=== PATIENT | female | born 1980 | race Caucasian/White ===

== ENCOUNTER 2018-07-25 12:56 | Outpatient (CLI) | payer BC ==
[~2018-07-25] VITALS: Ht 167.6 cm; Wt 83.0 kg
[2018-07-25] MEDS ORDERED: FISH1CAP15 PO (13:12)
[2018-07-25] MEDS ORDERED: ZOLP10TA PO (13:12)
[2018-07-25 13:19] VITALS: BP 121/69
[2018-07-25 14:09] LABS: BASOPHILS % (AUTO) 0 % (0-10); EOSINOPHILS # (AUTO) 0.1 10^3/uL (0.0-0.3); EOSINOPHILS % (AUTO) 1 % (0-10); HEMATOCRIT 43 % (35-52); HEMOGLOBIN 14.5 G/DL (11.5-16.0); LYMPHOCYTES # (AUTO) 2.4 X 10^3 (1.0-4.0); LYMPHOCYTES % (AUTO) 28 % (12-44); MEAN CORPUSCULAR HEMOGLOBIN 30 PG (25-34); MEAN CORPUSCULAR HGB CONC 34 G/DL (32-36); MEAN CORPUSCULAR VOLUME 87 FL (80-99); MONOCYTES # (AUTO) 0.3 X 10^3 (0.0-1.0); MONOCYTES % (AUTO) 4 % (0-12); NEUTROPHILS # (AUTO) 5.8 X 10^3 (1.8-7.8); NEUTROPHILS % (AUTO) 67 % (42-75); PLATELET COUNT 400 10^3/uL (130-400); RED BLOOD COUNT 4.91 10^6/uL (4.35-5.85); RED CELL DISTRIBUTION WIDTH 12.9 % (10.0-14.5); WHITE BLOOD COUNT 8.7 10^3/uL (4.3-11.0)
[2018-07-25 14:15] LABS: BILIRUBIN,URINE NEGATIVE (NEGATIVE); CLARITY,URINE CLEAR; COLOR,URINE YELLOW; GLUCOSE, URINE (UA) NEGATIVE (NEGATIVE); KETONES,URINE NEGATIVE (NEGATIVE); LEUKOCYTE ESTERASE ,URINE NEGATIVE (NEGATIVE); NITRITE,URINE NEGATIVE (NEGATIVE); PH,URINE 6 (5-9); PROTEIN,URINE NEGATIVE (NEGATIVE); UROBILINOGEN,URINE NORMAL (NORMAL)
[2018-07-25 14:29] LABS: BACTERIA,URINE TRACE /HPF
== END 2018-07-25 14:33 | disposition home or self-care (01) ==
LOC: PREOP 12:56
PROVIDERS: ATTEND Obstetrics & Gynecology
DX: Z01.812 Encounter for preprocedural laboratory examination (principal); Z11.2 Encounter for screening for other bacterial diseases; N92.0 Excessive and frequent menstruation with regular cycle; N94.6 Dysmenorrhea, unspecified; N80.0 Endometriosis of uterus; E28.2 Polycystic ovarian syndrome
CPT/HCPCS: 36415; 81000; 85025; 86850; 86900; 86901; 87081

== ENCOUNTER 2018-08-02 07:50 | Day surgery (SDC) | payer BC ==
[~2018-08-02] VITALS: Ht 167.6 cm; Wt 83.0 kg
[~2018-08-02 07:50] MED LIST: FISH1CAP15 PO; ZOLP10TA PO
[2018-08-02] MEDS ORDERED: BUP/EPI 0.5% 1:200,000 (SENSORCAINE) 30 ML VIAL ONE (08:09)
--- OUTSIDE RECORDS SUMMARY | 2018-08-02 08:09 | XMS REPORT | Clinical Summary ---
Author Author Admin, TRISTON Organization [facility] Address Unknown Phone Unavailable Allergies, Adverse Reactions, Alerts Allergy Name Reaction Description Start Date Severity Status Provider SULFA rash, vomiting, dyspnea Critical Active Branden Lewis DO Conditions or Problems Problem Name Problem Code Onset Date Status Entry Date Provider Comment Standard Description Annotate Viral syndrome 079.99 Active Branden Lewis DO Unspecified viral infection Other nonspecific finding on examination of urine 791.9 Active Mendy Laurie LRT Other nonspecific findings on examination of urine Medication List Medication Instructions Start Date Stop Date Generic Name NDC Status Provider Patient Instruction ZOFRAN ODT 4 MG ORAL TABLET DISINTEGRATING 1 po q6hr PRN Nausea ONDANSETRON 80651573812 Active Branden Lewis DO Active MULTIVITAMINS ORAL CAPSULE 1 tab daily MULTIPLE VITAMIN 64933855047 Active Branden Lewis DO Active Vital Signs Date Name Value Unit Range Description blood pressure, diastolic 72 mm[Hg] BP hahn blood pressure, systolic 119 mm[Hg] BP sys height E&M 66.5 [in_us] Bdy height pulse rate E&M 112 /min Heart rate temperature E&M 100.2 [degF] Body temperature weight E&M 182 [lb_av] Weight Measured Diagnostic Results Date Name Value Unit Range Description Lab Report: UADIP W/MICRO, AUTO, STEFANY INFLUENZA A/B - Chemistry protein, total urine random Negative mg/dL Negative RBC, urine, dipstick 1+ Negative Lab Report: UADIP W/MICRO, AUTO, STEFANY INFLUENZA A/B - Toxicology rapid flu test Negative Negative Lab Report: UADIP W/MICRO, AUTO, STEFANY INFLUENZA A/B - Urinalysis urobilinogen, urine, semiquantitative (dipstick) 0.2 E.U./dL Normal leukocyte esterase, urine, by dipstick Trace Negative nitrite, urine, semiquantitative Negative Negative glucose, urine, semiquantitative Negative Negative ketones, urine, by test strip 1+ Negative bilirubin, urine Negative Negative urine color Yellow Colorless;Lightyellow;Straw;Yellow appearance, urine Clear Clear specific gravity, urine 1.020 1.000-1.030 pH, urine, semiquantitative 7.5 5.0-8.5 Encounters Code Encounter Date Provider Facility CPT-36844 Level 3 New Patient 17:00:23 SOA INTEGRATION ARCHITECT Branden Lewis DO [facility] CPT-83141 Level 3 New Patient 16:59:07 SOA INTEGRATION ARCHITECT Branden Lewis DO [facility]
--- OUTSIDE RECORDS SUMMARY | 2018-08-02 08:09 | XMS REPORT | Clinical Summary ---
Author Author Admin, TRISTON Organization [facility] Address Unknown Phone Unavailable Allergies, Adverse Reactions, Alerts Allergy Name Reaction Description Start Date Severity Status Provider SULFA rash, vomiting, dyspnea Critical Active Branden Lewis DO Conditions or Problems Problem Name Problem Code Onset Date Status Entry Date Provider Comment Standard Description Annotate Viral syndrome 079.99 Inactive Branden Lewis DO Unspecified viral infection Other nonspecific finding on examination of urine 791.9 Active Mendy Laurie LRT Other nonspecific findings on examination of urine Viral syndrome ICD-079.99 Inactive Branden Lewis DO Medication List Medication Instructions Start Date Stop Date Generic Name NDC Status Provider Patient Instruction ZOFRAN ODT 4 MG ORAL TABLET DISINTEGRATING 1 po q6hr PRN Nausea ONDANSETRON 36097246465 Active Branden Lweis DO Active MULTIVITAMINS ORAL CAPSULE 1 tab daily MULTIPLE VITAMIN 02845057081 Active Branden Lewis DO Active Vital Signs [...] 5.0-8.5 Encounters Code Encounter Date Provider Facility CPT-76896 Level 3 New Patient 17:00:23 ARMORED MACHINE OPERATOR Branden Lewis DO [facility] CPT-15018 Level 3 New Patient 16:59:07 ARMORED MACHINE OPERATOR Branden Lewis DO [facility]
--- OUTSIDE RECORDS SUMMARY | 2018-08-02 08:09 | XMS REPORT | Clinical Summary ---
Author Author Admin, TRISTON Organization [facility] Address Unknown Phone Unavailable Allergies, Adverse Reactions, [...] DISINTEGRATING 1 po q6hr PRN Nausea ONDANSETRON 00268775469 Active Branden Lewis DO Active MULTIVITAMINS ORAL CAPSULE 1 tab daily MULTIPLE VITAMIN 76639597711 Active Branden Lewis DO Active Vital Signs [...] 5.0-8.5 Encounters Code Encounter Date Provider Facility CPT-83708 Level 3 New Patient 17:00:23 DIRECTOR TECHNICAL Branden Lewis DO [facility] CPT-07660 Level 3 New Patient 16:59:07 DIRECTOR TECHNICAL Branden Lewis DO [facility]
--- OUTSIDE RECORDS SUMMARY | 2018-08-02 08:09 | XMS REPORT | Clinical Summary ---
Author Author Admin, Cathi Organization [facility] Address Unknown Phone Unavailable Allergies, Adverse [...] Instructions Start Date Stop Date Generic Name ND Status Provider Patient Instruction ZOFRAN ODT 4 MG ORAL TABLET DISINTEGRATING 1 po q6hr PRN Nausea ONDANSETRON 97163847518 Active Branden Lewis DO Active MULTIVITAMINS ORAL CAPSULE 1 tab daily MULTIPLE VITAMIN 18146159667 Active Branden Lewis DO Active Vital Signs Date Name Value Unit Range Description blood pressure, diastolic 72 mm[Hg] BP hahn blood pressure, systolic 119 mm[Hg] BP sys height E&M 66.5 [in_us] Bdy height pulse rate E&M 112 /min Heart rate temperature E&M 100.2 [degF] Body temperature weight E&M 182 [lb_av] Weight Measured Encounters Code Encounter Date Provider Facility CPT-42167 Level 3 New Patient 17:00:23 CORPORATE STRATEGY ANALYST Branden Lewis DO [facility] CPT-11567 Level 3 New Patient 16:59:07 CORPORATE STRATEGY ANALYST Branden Lewis DO [facility]
--- OUTSIDE RECORDS SUMMARY | 2018-08-02 08:09 | XMS REPORT | Clinical Summary ---
Author Author Admin, TRISTON Organization [facility] Address Unknown Phone Unavailable Allergies, Adverse Reactions, [...] DISINTEGRATING 1 po q6hr PRN Nausea ONDANSETRON 25327715364 Active Branden Lewis DO Active MULTIVITAMINS ORAL CAPSULE 1 tab daily MULTIPLE VITAMIN 13574394518 Active Branden Lewis DO Active Vital Signs [...] 5.0-8.5 Encounters Code Encounter Date Provider Facility CPT-04119 Level 3 New Patient 17:00:23 GEAR DESIGN ENGINEER Branden Lewis DO [facility] CPT-99790 Level 3 New Patient 16:59:07 GEAR DESIGN ENGINEER Branden Lewis DO [facility]
[2018-08-02 08:10] VITALS: BP 117/70
[2018-08-02] MEDS: LACTATED RINGERS 1,000 ML IV PRN ×3 (08:10→12:03)
--- OUTSIDE RECORDS SUMMARY | 2018-08-02 08:10 | XMS REPORT | Clinical Summary ---
Author Author Admin, [facility] Organization [facility] Address Unknown Phone Unavailable Allergies, Adverse [...] DISINTEGRATING 1 po q6hr PRN Nausea ONDANSETRON 40026595237 Active Branden Lewis DO Active MULTIVITAMINS ORAL CAPSULE 1 tab daily MULTIPLE VITAMIN 93218731685 Active Branden Lewis DO Active Vital Signs Date Name Value Unit Range Description blood pressure, diastolic 72 mm[Hg] BP hahn blood pressure, systolic 119 mm[Hg] BP sys height E&M 66.5 [in_us] Bdy height pulse rate E&M 112 /min Heart rate temperature E&M 100.2 [degF] Body temperature weight E&M 182 [lb_av] Weight Measured Encounters Code Encounter Date Provider Facility CPT-01279 Level 3 New Patient 17:00:23 EARLY HEAD START TEACHER Branden Lewis DO [facility] CPT-86224 Level 3 New Patient 16:59:07 EARLY HEAD START TEACHER Branden Lewis DO [facility]
--- OUTSIDE RECORDS SUMMARY | 2018-08-02 08:10 | XMS REPORT ---
Author Jn Garza [facility] Address [address] [place], [place] [address] Care Team Providers Care Header Operator Name Role Phone Jn Loera PCP Unavailable Allergies and Adverse Reactions Name Reaction Notes SULFA (SULFONAMIDES) Alphagan Plan of Treatment Planned Activity Comments Planned Date Planned Time Plan/Goal Urinalysis dipstick (done in clinic) 05/26/2018 12:00 AM TSH 05/27/2018 12:00 AM TESTOSTERONE FREE & TOTAL 05/27/2018 12:00 AM Medications Active Name Start Date Estimated Completion Date SIG Comments metformin 500 mg oral tablet 05/23/2018 1 tab po tid Zofran 4 mg oral tablet 06/17/2018 1 tab po q 6 hours prn Name Start Date Expiration Date SIG Comments amoxicillin 500 mg oral capsule 10/17/2016 10/24/2016 take 1 capsule (500 mg) by oral route every 12 hours for 7 days Macrobid 100 mg oral capsule 01/23/2018 01/30/2018 take 1 capsule (100 mg) by oral route every 12 hours with food for 7 days phenazopyridine 200 mg oral tablet 01/23/2018 01/28/2018 take 1 tablet (200 mg ) by oral route 3 times per day after meals for 5 days Ambien 10 mg oral tablet 03/08/2018 04/07/2018 take 1 tablet (10 mg) by oral route once daily at bedtime for 30 days cephalexin 500 mg oral capsule 03/08/2018 03/18/2018 take 1 capsule (500 mg) by oral route every 12 hours for 10 days Discontinued Name Start Date Discontinued Date SIG Comments erythromycin 5 mg/gram (0.5 %) ophthalmic (eye) ointment 05/23/2018 05/30/2018 apply 1 cm ribbon into the lower conjunctival sac in the right eye by ophthalmic route 3 times per day Vaniqa 13.9 % topical cream 05/30/2018 06/17/2018 apply a thin layer to the affected area(s) by topical route 2 times per day for 90 days Lysteda 650 mg oral tablet 05/30/2018 06/17/2018 take 2 tablets (1,300 mg) by oral route 3 times per day during menses for 5 days Vivlodex 10 mg oral capsule 05/30/2018 06/13/2018 take 1 capsule (10 mg) by oral route once daily for 60 days Ultram 50 mg oral tablet 06/13/2018 06/17/2018 take 1 tablet (50 mg) by oral route every 4-6 hours as needed for 7 days Flomax 0.4 mg oral capsule 06/17/2018 06/17/2018 take 1 capsule (0.4 mg) by oral route once daily 1/2 hour following the same meal each day for 7 days Problem List Not available. Vital Signs Date Time BP-Sys(mm[Hg] BP-Preethi(mm[Hg]) HR(bpm) RR(rpm) Temp WT HT HC BMI BSA BMI Percentile O2 Sat(%) 06/17/2018 11:37:00 AM 118 mmHg 72 mmHg 83 bpm 18 rpm 99 F 179.5 lbs 66 in 28.9718 kg/m 1.9472 m 96 % 05/30/2018 2:31:00 PM 128 mmHg 76 mmHg 102 bpm 19 rpm 98.1 F 183.125 lbs 66.25 in 29.33 kg/m2 1.97 m2 99 % 05/23/2018 3:34:00 PM 104 mmHg 76 mmHg 68 bpm 18 rpm 181.25 lbs 66 in 29.25 kg/m2 1.96 m2 99 % 03/08/2018 11:36:00 AM 118 mmHg 74 mmHg 84 bpm 18 rpm 98.4 F 177.5 lbs 66 in 28.649 kg/m 1.9363 m 99 % 01/23/2018 1:45:00 PM 122 mmHg 78 mmHg 100 bpm 18 rpm 98.6 F 183 lbs 66 in 29.54 kg/m2 1.97 m2 96 % 10/17/2016 1:40:00 PM 108 mmHg 62 mmHg 66 bpm 16 rpm 99 F 170 lbs 66 in 27.4384 kg/m 1.8949 m 100 % Social History Name Description Comments Tobacco Never smoker Alcohol Children 3 History of Procedures Date Ordered Description Order Status 01/23/2018 12:00 AM URINE CULTURE/COLONY COUNT Reviewed 05/26/2018 12:00 AM ROUTINE VENIPUNCTURE Reviewed 05/26/2018 12:00 AM GLYCOSYLATED HEMOGLOBIN TEST Reviewed 05/26/2018 12:00 AM LIPID PANEL Reviewed 05/26/2018 12:00 AM COMPREHEN METABOLIC PANEL Reviewed 05/26/2018 12:00 AM COMPLETE CBC W/AUTO DIFF WBC Reviewed 05/26/2018 12:00 AM ASSAY THYROID STIM HORMONE Reviewed 05/26/2018 12:00 AM ASSAY OF FREE THYROXINE Reviewed 05/26/2018 8:32 AM URINALYSIS AUTO W/O SCOPE Reviewed 05/27/2018 12:00 AM ASSAY OF GONADOTROPIN (LH) Reviewed 05/27/2018 12:00 AM ASSAY OF PROLACTIN Reviewed 05/27/2018 12:00 AM DEHYDROEPIANDROSTERONE Reviewed 05/27/2018 12:00 AM ASSAY OF SEX HORMONE GLOBUL Reviewed 05/27/2018 12:00 AM LACTATE (LD) (LDH) ENZYME Reviewed 05/27/2018 12:00 AM ASSAY OF ESTROGEN Reviewed 05/27/2018 12:00 AM ASSAY OF ESTRADIOL Reviewed 05/30/2018 12:00 AM US EXAM PELVIC COMPLETE Reviewed 05/30/2018 12:00 AM TRANSVAGINAL US NON-OB Reviewed 06/05/2018 12:00 AM US EXAM PELVIC COMPLETE Reviewed 06/05/2018 12:00 AM TRANSVAGINAL US NON-OB Reviewed 06/17/2018 12:30 PM URINALYSIS AUTO W/O SCOPE Reviewed 06/17/2018 12:00 AM URINE BACTERIA CULTURE Returned 06/17/2018 12:[address] ABD & PELVIS W/O CONTRAST Returned 06/17/2018 12:00 AM Toradol 30 Mg Injection Reviewed 06/17/2018 12:00 AM US EXAM ABDOM COMPLETE Reviewed 06/21/2018 12:00 AM US EXAM ABDOM COMPLETE Returned Results Summary Date and Description Results 05/26/2018 8:00 AM GLUCOSE 107 SODIUM 139 POTASSIUM 4.2 CHLORIDE 105 CO2 24 BUN 11 CREATININE 0.7 SGOT/AST 22 SGPT/ALT 32 ALK PHOS 114 TOTAL PROTEIN 7.3 ALBUMIN 4.7 TOTAL BILI 0.5 CALCIUM 9.4 AGE 37 GFR NonAA 95 GFR AA 115 eGFR 95 eGFR AA* >60 FREE T4 0.76 TRIGLYCERIDES 223 CHOLESTEROL 251 HDL 47 TOT CHOL/HDL 5.3 LDL (CALC) 159 TSH 2.33 HGB A1C 5.4 Est Avg Glucose 108.3 WBC 8.2 RBC 4.75 HGB 14.4 HCT 42.7 MCV 90 MCH 30.3 MCHC 33.7 RDW SD 40 RDW CV 12.3 MPV 9.6 PLT 381 NRBC# 0.00 NRBC% 0.0 %NEUT 56.9 %LYMP 33.9 %MONO 6.0 %EOS 2.2 %BASO 0.9 # NEUT 4.68 #LYMP 2.79 #MONO 0.49 #EOS 0.18 #BASO 0.07 MANUAL DIFF NOT IND 05/26/2018 8:32 AM Clarity Ur clear Urine-Color yellow Glucose Ur-sCnc neg Bilirub Ur Ql neg Ketones Ur Ql Strip neg Sp Gr Ur Qn 1.025 Hgb Ur Ql Strip neg pH Ur-LsCnc 6.0 Prot Ur Ql Strip neg Urobilinogen Ur-mCnc 0.2 Nitrite Ur Ql Strip neg WBC # Ur neg 05/26/2018 5:41 PM LDH 151 LH 11.1 Sex Horm Binding Glob,Serum 36.9 Prolactin 18.2 Estradiol 178.6 Estrogens, Total 316 Dehydroepiandrosterone(DHEA) 448 06/17/2018 12:30 PM Glucose Ur-sCnc neg Bilirub Ur Ql Strip neg Ketones Ur Ql Strip neg Sp Gr Ur Qn 1.010 Hgb Ur Ql Strip moderate pH Ur-LsCnc 7.5 Prot Ur Ql Strip neg Urobilinogen Ur-mCnc 0.2 Nitrite Ur Ql Strip neg WBC Est Ur Ql Strip neg History Of Immunizations Not available. History of Past Illness Name Date of Onset Comments PCOS (polycystic ovarian syndrome) Headache Oct 17 2016 1:43PM URI (upper respiratory infection) Oct 17 2016 1:43PM Influenza Oct 17 2016 1:43PM Dysuria Jan 23 2018 1:48PM Cellulitis of right lower limb Mar 08 2018 11:42AM Cutaneous abscess of right lower limb Mar 08 2018 11:42AM Toxic effect of unspecified spider venom, accidental (unintentional), initial encounter Mar 08 2018 11:42AM Conjunctivitis May 23 2018 3:40PM PCOS (polycystic ovarian syndrome) May 23 2018 3:40PM Wellness examination May 26 2018 8:31AM PCOS (polycystic ovarian syndrome) May 26 2018 8:31AM PCOS (polycystic ovarian syndrome) May 27 2018 5:22PM Abnormal uterine bleeding (AUB) May 30 2018 3:14PM Abnormal Uterine Bleeding May 30 2018 2:35PM Hirsutism May 30 2018 2:35PM Dysmenorrhea May 30 2018 2:35PM Menorrhagia May 30 2018 2:35PM Metrorrhagia May 30 2018 2:35PM Flank pain Jun 17 2018 11:37AM Hematuria Jun 17 2018 11:37AM Nausea Jun 17 2018 3:32PM Diarrhea Jun 17 2018 3:32PM Abdominal pain, right upper quadrant Jun 17 2018 3:32PM Payers Insurance Name Company Name Plan Name Plan Number Policy Number Policy Group Number Start Date BCBS [facility]cbs [facility] [id number] N/A BCBS [employer] [facility] [id number] N/A History of Encounters Visit Date Visit Type Provider 06/17/2018 Office visit Jn Loera DISTRICT RECRUITER 05/30/2018 Office visit Julienne Basurto DISTRICT RECRUITER 05/26/2018 Laboratory Luis Iglesias NP 05/23/2018 Office visit Jn Loera DISTRICT RECRUITER 03/08/2018 Office visit Luis Iglesias NP 01/23/2018 Office visit Camilo Bocanegra DISTRICT RECRUITER 10/17/2016 Office visit Jeffy Lizama NP
--- OUTSIDE RECORDS SUMMARY | 2018-08-02 08:10 | XMS REPORT ---
Author Jn Garza [facility] Address [address] [place], [place] [address] Care Team Providers Care Three Dimensional Art Instructor Name Role Phone Jn Loera PCP Unavailable [...] 1 tab po q 6 hours prn tramadol 50 mg oral tablet 06/24/2018 take 1 tablet (50 mg) by oral route every 6 hours as needed Name Start Date Expiration Date SIG Comments [...] HC BMI BSA BMI Percentile O2 Sat(%) 06/24/2018 9:03:00 AM 116 mmHg 82 mmHg 74 bpm 18 rpm 98.6 F 186.375 lbs 66 in 30.0814 kg/m 1.9841 m 97 % 06/17/2018 11:37:00 AM 118 mmHg 72 mmHg 83 bpm 18 rpm 99 F 179.5 lbs 66 in 28.97 kg/m2 1.95 m2 96 % 05/30/2018 2:31:00 PM 128 mmHg 76 mmHg 102 bpm 19 rpm 98.1 F 183.125 lbs 66.25 in 29.3342 kg/m 1.9705 m 99 % 05/23/2018 3:34:00 PM 104 mmHg [...] 12:00 AM US EXAM ABDOM COMPLETE Returned 06/24/2018 12:00 AM COMPREHEN METABOLIC PANEL Returned 06/24/2018 12:00 AM ANTINUCLEAR ANTIBODIES Returned 06/24/2018 12:00 AM C-REACTIVE PROTEIN Returned 06/24/2018 12:00 AM HEPATOBILIARY SYSTEM IMAGING Returned 06/24/2018 12:00 AM ROUTINE VENIPUNCTURE Reviewed Results Summary Date and Description Results 05/26/2018 [...] right upper quadrant Jun 17 2018 3:32PM Enlarged liver Jun 24 2018 9:07AM Nausea Jun 24 2018 9:07AM Diarrhea Jun 24 2018 9:07AM Abdominal pain, right upper quadrant Jun 24 2018 9:07AM Payers Insurance Name Company Name Plan Name Plan Number Policy Number Policy Group Number Start Date BCBS [facility]cbs [facility] [id number] N/A BCBS [employer] [facility] [id number] N/A History of Encounters Visit Date Visit Type Provider 06/24/2018 Office visit Jn Loera PESTICIDE APPLICATOR 06/17/2018 Office visit Jn Loera PESTICIDE APPLICATOR 05/30/2018 Office visit Julienne Basurto PESTICIDE APPLICATOR 05/26/2018 Laboratory Luis Iglesias RESEARCH NEUROPSYCHOLOGIST 05/23/2018 Office visit Jn Loera PESTICIDE APPLICATOR 03/08/2018 Office visit Luis Iglesias NP 01/23/2018 Office visit Camilo Bocanegra PESTICIDE APPLICATOR 10/17/2016 Office visit Jeffy Lizama NP
--- OUTSIDE RECORDS SUMMARY | 2018-08-02 08:10 | XMS REPORT | Clinical Summary ---
Author Author Admin, Cathi Organization [facility] Address Unknown Phone Unavailable Allergies, Adverse [...] DISINTEGRATING 1 po q6hr PRN Nausea ONDANSETRON 65203516314 Active Branden Lewis DO Active MULTIVITAMINS ORAL CAPSULE 1 tab daily MULTIPLE VITAMIN 70115751730 Active Branden Lewis DO Active Vital Signs Date Name Value Unit Range Description blood pressure, diastolic 72 mm[Hg] BP hahn blood pressure, systolic 119 mm[Hg] BP sys height E&M 66.5 [in_us] Bdy height pulse rate E&M 112 /min Heart rate temperature E&M 100.2 [degF] Body temperature weight E&M 182 [lb_av] Weight Measured Encounters Code Encounter Date Provider Facility CPT-15578 Level 3 New Patient 17:00:23 REFINERY OPERATOR REFORMING UNIT Branden Lewis DO [facility] CPT-81059 Level 3 New Patient 16:59:07 REFINERY OPERATOR REFORMING UNIT Branden Lewis DO [facility]
--- OUTSIDE RECORDS SUMMARY | 2018-08-02 08:11 | XMS REPORT ---
Author Jn Garza [facility] Address [address] [place], [place] [address] Care Team Providers Care Clinical Team Manager Name Role Phone Jn Loera PCP Unavailable Allergies and Adverse Reactions Name Reaction Notes SULFA (SULFONAMIDES) Alphagan Plan of Treatment Planned Activity Comments Planned Date Planned Time Plan/Goal Urinalysis dipstick (done in clinic) 05/26/2018 12:00 AM TSH 05/27/2018 12:00 AM TESTOSTERONE FREE & TOTAL 05/27/2018 12:00 AM Urine culture and sensitivity 06/17/2018 12:[address] ABD AND PELVIS W/O CONTRAST 06/17/2018 12:00 AM Medications Active Name Start Date [...] 05/30/2018 12:00 AM US EXAM PELVIC COMPLETE Returned 05/30/2018 12:00 AM TRANSVAGINAL US NON-OB Returned 06/05/2018 12:00 AM US EXAM PELVIC COMPLETE Reviewed 06/05/2018 12:00 AM TRANSVAGINAL US NON-OB Reviewed 06/17/2018 12:30 PM URINALYSIS AUTO W/O SCOPE Reviewed 06/17/2018 12:00 AM Toradol 30 Mg Injection Reviewed 06/17/2018 12:00 AM US EXAM ABDOM COMPLETE Reviewed Results Summary Date and Description Results [...] Policy Group Number Start Date BCBS [employer] [facility] [place] [id number] N/A BCBS Bcbs [facility] [id number] N/A History of Encounters Visit Date Visit Type Provider 06/17/2018 Office visit Jn Loera SENIOR JAVA ARCHITECT 05/30/2018 Office visit Julienne Basurto SENIOR JAVA ARCHITECT 05/26/2018 Laboratory Luis Iglesias NP 05/23/2018 Office visit Jn Loera SENIOR JAVA ARCHITECT 03/08/2018 Office visit Luis Iglesias NP 01/23/2018 Office visit Camilo Bocanegra SENIOR JAVA ARCHITECT 10/17/2016 Office visit Jeffy Lizama NP
--- OUTSIDE RECORDS SUMMARY | 2018-08-02 08:11 | XMS REPORT ---
Author Jn Garza [facility] Address [address] [place], [place] [address] Care Team Providers Care Drill Instructor Name Role Phone Jn Loera PCP Unavailable Allergies and Adverse Reactions Name Reaction Notes SULFA (SULFONAMIDES) Alphagan Plan of Treatment Planned Activity Comments Planned Date Planned Time Plan/Goal Urinalysis dipstick (done in clinic) 05/26/2018 12:00 AM TSH 05/27/2018 12:00 AM TESTOSTERONE FREE & TOTAL 05/27/2018 12:[address] ABD AND PELVIS W/O [...] URINE BACTERIA CULTURE Returned 06/17/2018 12:00 AM Toradol 30 Mg [...] Group Number Start Date BCBS [facility] [facility] [place] [id number] N/A BCBS Bcbs [facility] [id number] N/A History of Encounters Visit Date Visit Type Provider 06/17/2018 Office visit Jn Loera DUTY OFFICER 05/30/2018 Office visit Julienne Basurto DUTY OFFICER 05/26/2018 Laboratory Luis Iglesias NP 05/23/2018 Office visit Jn Loera DUTY OFFICER 03/08/2018 Office visit Luis Iglesias NP 01/23/2018 Office visit Camilo Bocanegra DUTY OFFICER 10/17/2016 Office visit Jeffy Lizama NP
--- OUTSIDE RECORDS SUMMARY | 2018-08-02 08:11 | XMS REPORT ---
Author Jn Garza [facility] Address [address] [place], [place] [address] Care Team Providers Care Zipper Setter Chainstitch Name Role Phone Jn Loera PCP Unavailable Allergies and Adverse Reactions Name Reaction Notes SULFA (SULFONAMIDES) Alphagan Plan of Treatment Planned Activity Comments Planned Date Planned Time Plan/Goal Urinalysis dipstick (done in clinic) 05/26/2018 12:00 AM TSH 05/27/2018 12:00 AM TESTOSTERONE FREE & TOTAL 05/27/2018 12:[address] ABD AND PELVIS W/O CONTRAST 06/17/2018 12:00 AM US ABDOMINAL COMPLETE 06/21/2018 12:00 AM Medications Active Name Start Date [...] Group Number Start Date BCBS [facility] [facility] [place] [id number] N/A BCBS Bcbs [facility] [id number] N/A History of Encounters Visit Date Visit Type Provider 06/17/2018 Office visit Jn Loera WEATHER FORECASTER 05/30/2018 Office visit Julienne Basurto WEATHER FORECASTER 05/26/2018 Laboratory Luis Iglesias NP 05/23/2018 Office visit Jn Loera WEATHER FORECASTER 03/08/2018 Office visit Luis Iglesias NP 01/23/2018 Office visit Camilo Bocanegra WEATHER FORECASTER 10/17/2016 Office visit Jeffy Lizama NP
--- OUTSIDE RECORDS SUMMARY | 2018-08-02 08:12 | XMS REPORT ---
Author Jn Garza [facility] Address [address] [place], [place] [address] Care Team Providers Care Senior Product Analyst Name Role Phone Jn Loera PCP Unavailable [...] CONTRAST 06/17/2018 12:00 AM US ABDOMINAL COMPLETE 06/17/2018 12:00 AM Medications Active Name Start [...] 12:00 AM Toradol 30 Mg Injection Reviewed Results Summary Date and Description Results [...] Policy Group Number Start Date BCBS Bcbs [facility] [id number] N/A BCBS Bcbs [facility] [id number] N/A History of Encounters Visit Date Visit Type Provider 06/17/2018 Office visit Jn Loera SWIM COACH 05/30/2018 Office visit Julienne Basurto SWIM COACH 05/26/2018 Laboratory Luis Iglesias NP 05/23/2018 Office visit Jn Loera SWIM COACH 03/08/2018 Office visit Luis Iglesias NP 01/23/2018 Office visit Camilo Bocanegra SWIM COACH 10/17/2016 Office visit Jeffy Lizama NP
--- OUTSIDE RECORDS SUMMARY | 2018-08-02 08:12 | XMS REPORT ---
Author Jn Garza [facility] Address [address] [place], [place] [address] Care Team Providers Care Inspector Rough Castings Name Role Phone Jn Loera PCP Unavailable [...] oral tablet 05/23/2018 1 tab po tid Flomax 0.4 mg oral capsule 06/17/2018 06/24/2018 take 1 capsule (0.4 mg) by oral route once daily 1/2 hour following the same meal each day for 7 days Zofran 4 mg oral tablet 06/17/2018 1 [...] 4-6 hours as needed for 7 days Problem List Not available. [...] 2018 11:37AM Hematuria Jun 17 2018 11:37AM Payers Insurance Name Company Name Plan Name Plan Number Policy Number Policy Group Number Start Date BCBS [employer] [facility] [place] [id number] N/A BCBS Bcbs [facility] [id number] N/A History of Encounters Visit Date Visit Type Provider 06/17/2018 Office visit Jn Loera HAND PACKER 05/30/2018 Office visit Julienne Basurto HAND PACKER 05/26/2018 Laboratory Luis Iglesias NP 05/23/2018 Office visit Jn Loera HAND PACKER 03/08/2018 Office visit Luis Iglesias NP 01/23/2018 Office visit Camilo Bocanegra HAND PACKER 10/17/2016 Office visit Jeffy Lizama NP
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
--- OUTSIDE RECORDS SUMMARY | 2018-08-02 08:13 | XMS REPORT ---
Author Jn Garza [facility] Address [address] [place], [place] [address] Care Team Providers Care Bi Developer Name Role Phone Jn Loera PCP Unavailable [...] Policy Group Number Start Date BCBS Bcbs [facility] [id number] N/A BCBS [facility] [id number] N/A History of Encounters Visit Date Visit Type Provider 06/17/2018 Office visit Jn Loera ADMINISTRATIVE SALES ASSISTANT 05/30/2018 Office visit Julienne Basurto ADMINISTRATIVE SALES ASSISTANT 05/26/2018 Laboratory Luis Iglesias NP 05/23/2018 Office visit Jn Loera ADMINISTRATIVE SALES ASSISTANT 03/08/2018 Office visit Luis Iglesias NP 01/23/2018 Office visit Camilo Bocanegra ADMINISTRATIVE SALES ASSISTANT 10/17/2016 Office visit Jeffy Lizama NP
--- OUTSIDE RECORDS SUMMARY | 2018-08-02 08:13 | XMS REPORT ---
Author Author Julienne Basurto [facility] Address [address] [place], [place] [address] Care Team Providers Care Professor Of Communication Name Role Phone Julienne Basurto PCP Allergies [...] per day during menses for 5 days Ultram 50 mg oral tablet 06/13/2018 06/20/2018 take 1 tablet (50 mg) by oral route every 4-6 hours as needed for 7 days Name Start Date Expiration Date SIG [...] by ophthalmic route 3 times per day Vivlodex 10 mg oral capsule 05/30/2018 06/13/2018 take 1 capsule (10 mg) by oral route once daily for 60 days Problem List Not available. Vital Signs [...] Policy Group Number Start Date BCBS Bcbs [facility] [id number] N/A BCBS [employer]cbs [facility] [id number] N/A History of Encounters Visit Date Visit Type Provider 05/30/2018 Office visit Julienne Basurto BLASTING WORKER 05/26/2018 Laboratory Luis Iglesias NP 05/23/2018 Office visit Jn Loera BLASTING WORKER 03/08/2018 Office visit Luis Iglesias NP 01/23/2018 Office visit Camilo Bocanegra BLASTING WORKER 10/17/2016 Office visit Jeffy Lizama NP
[2018-08-02] MEDS ORDERED: ONDANSETRON 4 MG/2 ML (SDV) Z0FRAN ONE ×2 (08:14→08:22)
[2018-08-02] MEDS ORDERED: SCOPOLAMINE 1.5 MG (TRANSDERM-SCOP) PATCH ONE (08:14)
--- OUTSIDE RECORDS SUMMARY | 2018-08-02 08:14 | XMS REPORT ---
Author Author Luis Iglesias [facility] Address [address] [place], [place] [address] Care Team Providers Care Journeyman Carpenter Name Role Phone Luis Iglesias PCP Allergies and Adverse Reactions Name Reaction Notes SULFA (SULFONAMIDES) Alphagan Plan of Treatment Planned Activity Comments Planned Date Planned Time Plan/Goal Urinalysis dipstick (done in clinic) 05/26/2018 12:00 AM LH 05/27/2018 12:00 AM TSH 05/27/2018 12:00 AM PROLACTIN 05/27/2018 12:00 AM DHEA 05/27/2018 12:00 AM SEX HORMONE BINDING GLOBULIN 05/27/2018 12:00 AM LDH 05/27/2018 12:00 AM TESTOSTERONE FREE & TOTAL 05/27/2018 12:00 AM ESTROGEN SERUM TOTAL 05/27/2018 12:00 AM ESTRADIOL. 05/27/2018 12:00 AM Medications Active Name Start Date Estimated Completion Date SIG Comments erythromycin 5 mg/gram (0.5 %) ophthalmic (eye) ointment 05/23/2018 apply 1 cm ribbon into the lower conjunctival sac in the right eye by ophthalmic route 3 times per day metformin 500 mg oral tablet 05/23/2018 1 tab po tid Name Start Date Expiration Date SIG Comments [...] route every 12 hours for 10 days Problem List Not available. Vital Signs Date Time BP-Sys(mm[Hg] BP-Preethi(mm[Hg]) HR(bpm) RR(rpm) Temp WT HT HC BMI BSA BMI Percentile O2 Sat(%) 05/23/2018 3:34:00 PM 104 mmHg 76 mmHg 68 bpm 18 rpm 181.25 lbs 66 in 29.2542 kg/m 1.9566 m 99 % 03/08/2018 11:36:00 AM 118 mmHg 74 mmHg 84 bpm 18 rpm 98.4 F 177.5 lbs 66 in 28.65 kg/m2 1.94 m2 99 % 01/23/2018 1:45:00 PM 122 mmHg 78 mmHg 100 bpm 18 rpm 98.6 F 183 lbs 66 in 29.5367 kg/m 1.9661 m 96 % 10/17/2016 1:40:00 PM 108 mmHg 62 mmHg 66 bpm 16 rpm 99 F 170 lbs 66 in 27.4384 kg/m 1.89 m2 100 % Social History Name Description Comments Tobacco Never smoker Alcohol History of Procedures Date Ordered Description Order [...] 8:32 AM URINALYSIS AUTO W/O SCOPE Reviewed Results Summary Date and Description Results [...] Ql Strip neg WBC # Ur neg History Of Immunizations Not available. History [...] (polycystic ovarian syndrome) May 27 2018 5:22PM Payers Insurance Name Company Name Plan Name Plan Number Policy Number Policy Group Number Start Date BCBS [facility] [place] [id number] N/A BCBS [facility] [id number] N/A History of Encounters Visit Date Visit Type Provider 05/26/2018 Laboratory Luis Iglesias NP 05/23/2018 Office visit Jn Loera TRANSIT OPERATOR 03/08/2018 Office visit Luis Iglesias NP 01/23/2018 Office visit Camilo Bocanegra TRANSIT OPERATOR 10/17/2016 Office visit Jeffy Lizama NP
--- OUTSIDE RECORDS SUMMARY | 2018-08-02 08:14 | XMS REPORT ---
Author Author Julienne Basurto [facility] Address [address] [place], [place] [address] Care Team Providers Care Computer Operations Analyst Name Role Phone Julienne Basurto PCP Allergies and Adverse Reactions Name Reaction Notes SULFA (SULFONAMIDES) Alphagan Plan of Treatment Planned Activity Comments Planned Date Planned Time Plan/Goal Urinalysis dipstick (done in clinic) 05/26/2018 12:00 AM TSH 05/27/2018 12:00 AM DHEA 05/27/2018 12:00 AM TESTOSTERONE FREE & TOTAL 05/27/2018 12:00 AM ESTROGEN SERUM TOTAL 05/27/2018 12:00 AM ESTRADIOL. 05/27/2018 12:00 AM Transabdominal / Transvaginal US [...] per day during menses for 5 days Name Start Date Expiration Date SIG [...] day after meals for 5 days Ambien mg oral tablet 03/08/2018 04/07/2018 take 1 [...] 05/27/2018 12:00 AM ASSAY OF GONADOTROPIN (LH) Returned 05/27/2018 12:00 AM ASSAY OF PROLACTIN Returned 05/27/2018 12:00 AM ASSAY OF SEX HORMONE GLOBUL Returned 05/27/2018 12:00 AM LACTATE (LD) (LDH) ENZYME Reviewed Results Summary Date and Description Results [...] Ur neg 05/26/2018 5:41 PM LDH 151 History Of Immunizations Not available. History of [...] 2018 2:35PM Hirsutism May 30 2018 2:35PM Payers Insurance Name Company Name Plan Name Plan Number Policy Number Policy Group Number Start Date BCBS [facility] [place] [id number] N/A BCBS [facility] [place] [id number] N/A History of Encounters Visit Date Visit Type Provider 05/30/2018 Office visit Julienne Basurto MANAGER PAYMENT 05/26/2018 Laboratory Luis Iglesias NP 05/23/2018 Office visit Jn Loera MANAGER PAYMENT 03/08/2018 Office visit Luis Iglesias NP 01/23/2018 Office visit Camilo Bocanegra MANAGER PAYMENT 10/17/2016 Office visit Jeffy Lizama NP
--- OUTSIDE RECORDS SUMMARY | 2018-08-02 08:14 | XMS REPORT ---
Author Author Luis Iglesias [facility] Address [address] [place], [place] [address] Care Team Providers Care Public Information Officer Name Role Phone Luis Iglesias PCP Allergies and Adverse Reactions Name Reaction Notes SULFA (SULFONAMIDES) Alphagan Plan of Treatment Planned Activity Comments Planned Date Planned Time Plan/Goal HEMOGLOBIN A1C 05/26/2018 12:00 AM LIPID PANEL 05/26/2018 12:00 AM COMPREHENSIVE METABOLIC PANEL 05/26/2018 12:00 AM CBC W/ AUTO DIFF (RFLX MAN DIFF IF IND). 05/26/2018 12:00 AM Urinalysis dipstick (done in clinic) 05/26/2018 12:00 AM TSH 05/26/2018 12:00 AM T4 FREE 05/26/2018 12:00 AM Medications Active Name Start Date [...] 05/26/2018 12:00 AM ROUTINE VENIPUNCTURE Reviewed 05/26/2018 8:32 AM URINALYSIS AUTO W/O SCOPE Reviewed Results Summary Date and Description Results 05/26/2018 8:32 AM Clarity Ur clear Urine-Color [...] (polycystic ovarian syndrome) May 26 2018 8:31AM Payers Insurance Name Company Name Plan Name Plan Number Policy Number Policy Group Number Start Date BCBS [facility]bs [facility] [id number] N/A BCBS [facility] [id number] N/A History of Encounters Visit Date Visit Type Provider 05/26/2018 Laboratory Luis Iglesias NP 05/23/2018 Office visit Jn Loera MUCKER COFFERDAM 03/08/2018 Office visit Luis Iglesias NP 01/23/2018 Office visit Camilo Bocanegra MUCKER COFFERDAM 10/17/2016 Office visit Jeffy Lizama NP
[2018-08-02] MEDS ORDERED: ceFAZolin INJECTION 1,000 MG in NS (IVPB) 50 ML IV ONE (08:15)
[2018-08-02] MEDS ORDERED: metroNIDAZOLE 500MG/100ML IVPB 100 ML IV ONE (08:15)
[2018-08-02] MEDS ORDERED: FAMOTIDINE 20MG/2ML IV (PEPCID) ONE (08:15)
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
--- OUTSIDE RECORDS SUMMARY | 2018-08-02 08:15 | XMS REPORT ---
Author Jeffy Dumont [facility] Address [address] [place], [place] [address] Care Team Providers Care Ice Cream Freezer Assistant Name Role Phone Jeffy Lizama PCP Unavailable Allergies and Adverse Reactions Name Reaction Notes SULFA (SULFONAMIDES) Plan of Treatment Not available. Medications Active Name Start Date Estimated Completion Date SIG Comments amoxicillin 500 mg oral capsule 10/17/2016 10/24/2016 take 1 capsule (500 mg) by oral route every 12 hours for 7 days Problem List Not available. Vital Signs Date Time BP-Sys(mm[Hg] BP-Preethi(mm[Hg]) HR(bpm) RR(rpm) Temp WT HT HC BMI BSA BMI Percentile O2 Sat(%) 10/17/2016 1:40:00 PM 108 mmHg 62 mmHg 66 bpm 16 rpm 99 F 170 lbs 66 in 27.44 kg/m2 1.89 m2 100 % Social History Not available. History of Procedures Not available. Results Summary Not available. History Of Immunizations Not available. History of Past Illness Name Date of Onset Comments Headache Oct 17 2016 1:43PM URI (upper respiratory infection) Oct 17 2016 1:43PM Influenza Oct 17 2016 1:43PM Payers Insurance Name Company Name Plan Name Plan Number Policy Number Policy Group Number Start Date [facility] [id number] N/A History of Encounters Visit Date Visit Type Provider 10/17/2016 Office visit Jeffy Lizama OIL HEAT TECHNICIAN
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
--- OUTSIDE RECORDS SUMMARY | 2018-08-02 08:15 | XMS REPORT ---
Author Author Luis Iglesias [facility] Address [address] [place], [place] [address] Care Team Providers Care Inspector And Sorter Name Role Phone Luis Iglesias PCP Allergies [...] Start Date BCBS [facility]bs [facility] [id number] N/A BCBS [facility] [id number] N/A History of Encounters Visit Date Visit Type Provider 05/26/2018 Laboratory Luis Iglesias NP 05/23/2018 Office visit Jn Loera GANG PLANK WORKMAN 03/08/2018 Office visit Luis Iglesias NP 01/23/2018 Office visit Camilo Bocanegra GANG PLANK WORKMAN 10/17/2016 Office visit Jeffy Lizama NP
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
--- OUTSIDE RECORDS SUMMARY | 2018-08-02 08:15 | XMS REPORT ---
Author Jn Garza [facility] Address [address] [place], [place] [address] Care Team Providers Care Pharmaceutical Operator Name Role Phone Jn Loera PCP Unavailable Allergies and Adverse Reactions Name Reaction Notes SULFA (SULFONAMIDES) Alphagan Plan of Treatment Not available. Medications Active [...] 01/23/2018 12:00 AM URINE CULTURE/COLONY COUNT Reviewed Results Summary Not available. History Of Immunizations [...] (polycystic ovarian syndrome) May 23 2018 3:40PM Payers Insurance Name Company Name Plan Name Plan Number Policy Number Policy Group Number Start Date BCBS Bcbs [facility] [id number] N/A BCBS [employer] [facility] [id number] N/A History of Encounters Visit Date Visit Type Provider 05/23/2018 Office visit Jn Loera MERCERIZER MACHINE OPERATOR 03/08/2018 Office visit Luis Iglesias NP 01/23/2018 Office visit Camilo Bocanegra MERCERIZER MACHINE OPERATOR 10/17/2016 Office visit Jeffy Lizama NP
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
--- OUTSIDE RECORDS SUMMARY | 2018-08-02 08:15 | XMS REPORT ---
Author Author Camilo Bocanegra [facility] Address [address] [place], [place] [address] Care Team Providers Care Yard Worker Name Role Phone Camilo Bocanegra PCP Allergies and Adverse Reactions Name Reaction Notes SULFA (SULFONAMIDES) Plan of Treatment Planned Activity Comments Planned Date Planned Time Plan/Goal CULTURE URINE. 01/23/2018 12:00 AM Medications Active Name Start Date Estimated Completion Date SIG Comments Macrobid 100 mg oral capsule 01/23/2018 01/30/2018 take 1 capsule (100 mg) by oral route every 12 hours with food for 7 days phenazopyridine 200 mg oral tablet 01/23/2018 01/28/2018 take 1 tablet (200 mg ) by oral route 3 times per day after meals for 5 days Name Start Date Expiration Date SIG Comments amoxicillin 500 mg oral capsule 10/17/2016 10/24/2016 take 1 capsule (500 mg) by oral route every 12 hours for 7 days Problem List Not available. Vital Signs Date Time BP-Sys(mm[Hg] BP-Preethi(mm[Hg]) HR(bpm) RR(rpm) Temp WT HT HC BMI BSA BMI Percentile O2 Sat(%) 01/23/2018 1:45:00 PM 122 mmHg 78 mmHg 100 bpm 18 rpm 98.6 F 183 lbs 66 in 29.5367 kg/m 1.9661 m 96 % 10/17/2016 1:40:00 PM 108 mmHg 62 mmHg 66 bpm 16 rpm 99 F 170 lbs 66 in 27.44 kg/m2 1.89 m2 100 % Social History Name Description Comments Tobacco Never smoker Alcohol History of Procedures Not available. Results Summary Not available. History Of Immunizations Not available. History of Past Illness Name Date of Onset Comments Headache Oct 17 2016 1:43PM URI (upper respiratory infection) Oct 17 2016 1:43PM Influenza Oct 17 2016 1:43PM Dysuria Jan 23 2018 1:48PM Payers Insurance Name Company Name Plan Name Plan Number Policy Number Policy Group Number [facility] Date [id number]A History of Encounters Visit Date Visit Type Provider 01/23/2018 Office visit Camilo Bocanegra APRN 10/17/2016 Office visit Jeffy Lizama NP
--- OUTSIDE RECORDS SUMMARY | 2018-08-02 08:16 | XMS REPORT | Continuity of Care Document ---
Author Author [facility] Address Unknown Phone Unavailable Allergies Active Description Code Type Severity Reaction Onset Reported/Identified Relationship to Patient Clinical Status Yes sulfa drug 16 Drug N/A N/A Yes Sulfa (Sulfonamide Antibiotics) [id number] Drug Allergy Mild RASH, GI UPSET 07/25/2018 Medications There is no data. Problems Date Dx Coded Attending Type Code Diagnosis Diagnosed By 10/26/2017 B97.89 Viral syndrome 10/26/2017 R82.99 Other nonspecific finding on examination of urine 07/27/2018 LUDA ZHENG DO Ot E28.2 POLYCYSTIC OVARIAN SYNDROME 07/27/2018 LUDA ZHENG DO, Ot N80.0 ENDOMETRIOSIS OF UTERUS 07/27/2018 LUDA ZHENG DO Ot N92.0 EXCESSIVE AND FREQUENT MENSTRUATION WITH 07/27/2018 LUDA ZHENG DO Ot N94.6 DYSMENORRHEA, UNSPECIFIED 07/27/2018 LUDA ZHENG DO Ot Z01.812 ENCOUNTER FOR PREPROCEDURAL LABORATORY E 07/27/2018 LUDA ZHENG DO Ot Z11.2 ENCOUNTER FOR SCREENING FOR OTHER BACTER Procedures There is no data. Results Test Result Range Estradiol - 05/26/18 17:41 Estradiol 178.6 pg/mL Estrogens, Total - 05/26/18 17:41 Estrogens, Total 316 pg/mL Sex Horm Binding Glob, Serum - 05/26/18 17:41 Sex Horm Binding Glob, Serum 36.9 nmol/L 24.6-122.0 Prolactin - 05/26/18 17:41 Prolactin 18.2 ng/mL 4.8-23.3 Luteinizing Hormone(LH), S - 05/26/18 17:41 LH 11.1 mIU/mL DHEA, Serum - 05/26/18 17:41 Dehydroepiandrosterone (DHEA) 448 ng/dL 31-701 Hepatitis Panel (4) - 06/24/18 10:05 HBsAg Screen Negative Negative Hep A Ab, IgM Negative Negative Hep B Core Ab, IgM Negative Negative Hep C Virus Ab <0.1 s/co ratio 0.0-0.9 Complete urinalysis with reflex to culture - 07/25/18 13:40 Urine color determination YELLOW NRG Urine clarity determination CLEAR NRG Urine pH measurement by test strip 6 5-9 Specific gravity of urine by test strip 1.010 1.016- 1.022 Urine protein assay by test strip, semi-quantitative NEGATIVE NEGATIVE Urine glucose detection by automated test strip NEGATIVE NEGATIVE Erythrocytes detection in urine sediment by light microscopy NEGATIVE NEGATIVE Urine ketones detection by automated test strip NEGATIVE NEGATIVE Urine nitrite detection by test strip NEGATIVE NEGATIVE Urine total bilirubin detection by test strip NEGATIVE NEGATIVE Urine urobilinogen measurement by automated test strip (mass/volume) NORMAL NORMAL Urine leukocyte esterase detection by dipstick NEGATIVE NEGATIVE Automated urine sediment erythrocyte count by microscopy (number/high power field) NONE NRG Automated urine sediment leukocyte count by microscopy (number/high power field ) NONE NRG Bacteria detection in urine sediment by light microscopy TRACE NRG Squamous epithelial cells detection in urine sediment by light microscopy 5-10 NRG Crystals detection in urine sediment by light microscopy NONE NRG Casts detection in urine sediment by light microscopy NONE NRG Mucus detection in urine sediment by light microscopy NEGATIVE NRG Complete urinalysis with reflex to culture NO NRG Methicillin resistant Staphylococcus aureus (MRSA) screening culture - 13:45 Methicillin resistant Staphylococcus aureus (MRSA) screening culture NEG NRG Complete blood count (CBC) with automated white blood cell (WBC) differential - 07/25/18 13:50 Blood leukocytes automated count (number/volume) 8.7 10*3/uL 4.3-11.0 Blood erythrocytes automated count (number/volume) 4.91 10*6/uL 4.35-5.85 Venous blood hemoglobin measurement (mass/volume) 14.5 g/dL 11.5-16.0 Blood hematocrit (volume fraction) 43 % 35-52 Automated erythrocyte mean corpuscular volume 87 [foz_us] 80-99 Automated erythrocyte mean corpuscular hemoglobin (mass per erythrocyte) 30 pg 25-34 Automated erythrocyte mean corpuscular hemoglobin concentration measurement ( mass/volume) 34 g/dL 32-36 Automated erythrocyte distribution width ratio 12.9 % 10.0-14.5 Automated blood platelet count (count/volume) 400 10*3/uL 130-400 Automated blood platelet mean volume measurement 10.0 [foz_us] 7.4-10.4 Automated blood neutrophils/100 leukocytes 67 % 42-75 Automated blood lymphocytes/100 leukocytes 28 % 12-44 Blood monocytes/100 leukocytes 4 % 0-12 Automated blood eosinophils/100 leukocytes 1 % 0-10 Automated blood basophils/100 leukocytes 0 % 0-10 Blood neutrophils automated count (number/volume) 5.8 10*3 1.8-7.8 Blood lymphocytes automated count (number/volume) 2.4 10*3 1.0-4.0 Blood monocytes automated count (number/volume) 0.3 10*3 0.0-1.0 Automated eosinophil count 0.1 10*3/uL 0.0-0.3 Automated blood basophil count (count/volume) 0.0 10*3/uL 0.0-0.1 Blood type T Indirect antibody screen panel - 07/25/18 13:50 ABO+Rh group BP NRG Blood group antibody screen NEGATIVE NRG Encounters ACCT No. Visit Date/Time Discharge Status Pt. Type Provider Facility Loc./Unit Complaint [id number] 05/30/2018 09:27:00 ACT Unknown [id number] 06/17/2018 12:44:30 06/17/2018 23:59:59 DIS Outpatient JENNIFER RAMIREZ [facility] flank pain, hematuria [id number] 09/06/2017 04:11:00 09/06/2017 07:20:00 DIS Emergency BETH RAMOS [facility] ED visit [id number] 06/24/2018 10:00:35 06/24/2018 23:59:59 CLS Outpatient Jennifer Ramirez [id number] 06/20/2018 16:26:44 06/20/2018 23:59:59 CLS Outpatient Jennifer Ramirez [id number] 05/30/2018 14:59:05 05/30/2018 23:59:59 CLS Outpatient Julienne Basurto [id number] 05/26/2018 09:03:17 05/26/2018 23:59:59 CLS Outpatient Luis Iglesias [id number] 05/23/2018 16:01:46 05/23/2018 23:59:59 CLS Outpatient Jennifer Ramirez [id number] 03/08/2018 12:24:45 03/08/2018 23:59:59 CLS Outpatient Luis Iglesias [id number] 01/23/2018 14:44:09 01/23/2018 23:59:59 CLS Outpatient Camilo Bocanegra [id number] 10/17/2016 13:57:02 10/17/2016 23:59:59 CLS Outpatient Jeffy Lizama [id number] 05/30/2018 14:05:00 Document Registration [id number] 06/01/2018 06:06:00 Document Registration [id number] 11/15/2017 15:20:00 11/15/2017 23:59:59 CLS Outpatient LAGOSRICKEY CONTRERAS [id number] 05/30/2018 14:05:00 Document Registration [id number] 05/30/2018 14:05:00 Document Registration [id number] 07/25/2018 12:56:00 07/25/2018 14:33:00 DIS Outpatient LUDA ZHENG DO [facility] PREOP MENORRHAGIA [id number] 08/02/2018 07:50:00 ACT Outpatient LUDA ZHENG DO [facility] SDC MENORRHAGIA [id number] 05/30/2018 14:05:00 Document Registration [id number] 06/02/2018 12:08:00 Document Registration [id number] 06/25/2018 14:05:00 Document Registration
[2018-08-02] MEDS ORDERED: fentaNYL INJECTION 100 MCG/2 ML AMP ONE ×3 (08:17→12:24)
[2018-08-02] MEDS ORDERED: MIDAZOLAM 2 MG/2 ML (VERSED) VIAL ONE (08:17)
[2018-08-02] MEDS ORDERED: proPOfol 200 MG/20 ML (DIPRIVAN) VIAL IV ONE (08:22)
[2018-08-02] MEDS ORDERED: ROCURONIUM 10 MG/ML 5 ML SYRINGE IV ONE (08:22)
[2018-08-02] MEDS ORDERED: LIDOCAINE PF 2% 5 ML (XYLOCAINE) VIAL ONE (08:22)
[2018-08-02] MEDS ORDERED: SEVOFLURANE (ULTANE) 15 ML INHAL SOLN ONE ×11 (08:22→12:07)
[2018-08-02] MEDS ORDERED: DEXAMETHASONE 10 MG/ML (DECADRON) 1 ML VIAL ONE (08:22)
[2018-08-02] MEDS: CATHETER FLUSH 10 ML SYR IV PRN (08:25)
--- NOTE | 2018-08-02 08:49 | Progress Note-Pre Operative ---
Pre-Operative Progress Note H&P Reviewed The H&P was reviewed, patient examined and no changes noted. Date Seen by Provider: Aug 02, 2018 Time Seen by Provider: 09:50 Date H&P Reviewed: Aug 02, 2018 Time H&P Reviewed: 07:30 Pre-Operative Diagnosis: menorrhagia, dysmenorrhea, adenomyosis, pcos LUDA ZHENG DO Aug 02, 2018 08:49
[2018-08-02] MEDS ORDERED: ONDANSETRON 4 MG/2 ML (SDV) Z0FRAN IV ONE (09:00)
[2018-08-02] MEDS ORDERED: FAMOTIDINE 20MG/2ML IV (PEPCID) IV ONE (09:00)
[2018-08-02] MEDS ORDERED: SCOPOLAMINE 1.5 MG (TRANSDERM-SCOP) PATCH TOP ONE (09:00)
[2018-08-02] MEDS ORDERED: NEOSTIGMINE 1 MG/ML 5 ML SYRINGE ONE (10:52)
[2018-08-02] MEDS ORDERED: GLYCOPYRROLATE 0.2 MG/ML (ROBINUL) 2 ML VIAL ONE (10:52)
[2018-08-02] MEDS: KETOROLAC 30 MG/ML VIAL IV PRN ×2 (12:25→18:54)
[2018-08-02] MEDS ORDERED: KETOROLAC 30 MG/ML VIAL ONE (12:26)
[2018-08-02] MEDS ORDERED: ZOLPIDEM 5 MG (AMBIEN) TAB PO PRN (12:45)
[2018-08-02] MEDS ORDERED: ANTACID SUSP 30 ML UDC (MYLANTA) PO PRN (12:45)
[2018-08-02] MEDS ORDERED: DOCUSATE SODIUM 100 MG (COLACE) CAP PO PRN (12:45)
[2018-08-02] MEDS ORDERED: CHLORASEPTIC LOZENGE MM PRN (12:45)
--- NOTE | 2018-08-02 12:51 | Operative Report ---
Operative Report Date of Procedure/Surgery Aug 02, 2018 Surgeon (s) LUDA ZHENG DO Sieve Repairer (s): NA Post-Operative Diagnosis Stage 4 endometriosis Extensive adhesion Endometrioma right ovary/complex ovarian cyst Adenomyosis endometriosis Procedure Performed RaTH, bilateral salpingectomy Right oophorectomy extensive lysis of adhesions (> 60 minutes) Description of Procedure Anesthesia Type: General Estimated blood loss (mL): 250 Specimen(s) collected/removed uterus, bilateral tubes and right ovary Description of the Procedure After informed consent was obtained, patient was taken into the operating room where general anesthetic was found to be adequate. She was prepped and draped in the usual sterile fashion in the dorsal lithotomy position. A Donaldson catheter was placed. A speculum was placed in the vagina. The cervix was visualized and was prolapsed to the introitus. The anterior lip was grasped with a sharp toothed tenaculum. The uterus was sounded and depth was approximately 8 centimeters. I placed the Jessica device. And then set the Jessica to 8 cm and a 3.5 cm collar was advanced over the cervix. I inserted the Jessica without difficulty, inflating the balloon and securing it around the fornix of the cervix. The collar was then secured with sutures at 12 o'clock. Attention was then turned to the patient's abdomen. A supraumbilical incision was made about 10 mm. A Veress needle was inserted and I had difficulty confirming intraabdominal placement, but was eventually able to confirm with a drop in pressure and the saline drop test. I then insufflated the abdomen to a maximum of 15 mmHg with warmed CO2 gas. I then placed an 8 mm trocar and then the Da Miguel camera and intraperitoneal placement was confirmed. I then determined the procedure could be continued robotically. there were omental adhesions obscuring the view of the uterus that had to be take down before the hysterectomy could be completed. The first robotic port was placed about 15 cm lateral to the right and left of the umbilical placement and slightly inferior. These are both 8 mm trocars. These were placed under direct visualization of the laparoscope. 0.25% Marcaine was injected prior to placement of all trocars. I now placed an assist port in the right up quadrant triangulated between the midline and the right lower Trocal. This was a 10-12 mm trocar. When all placements were confirmed, the patient was placed in steep Trendelenburg allowing adequate visualization and the robot was brought in for docking. The docking was accomplished without difficulty. A survey of the pelvis confirmed the above mentioned findings. There were adhesions of the omentum that were taken down prior to starting the hysterectomy. I now had to take down the bowel adhesions with blunt and sharp dissection. All of the adhesiolysis took at least 60 m inutes. The left tube and ovary was dissected off the posterior uterus and the adhesions were take down from the posterior culdesac. I also took down the adhesions form the right tube and ovary. These were all hemostatic except the right tube and ovary. Now, I was able to visualize the round ligaments bilaterally and grasped them and cauterized with bipolar cautery and then cut with my feliciano. At this point , I then did bilateral salpingectomy. I cut along the mesosalpinx with the monopolar feliciano and then dissected up to the cornu bilaterally. I then moved to the uteroovarian ligaments. I sealed the vessel and transected bilaterally using the bipolar cautery and then cut with the monopolar feliciano. I then moved my dissection to the posterior leaves of the broad ligament. I dissected the posterior leaves of the broad ligament off the uterine arteries skeletonizing them bilaterally. I then took a second clamp with the bipolar cautery and with the feliciano, transected the vessels away from the lateral aspect to the cervical stroma. I dissected the anterior peritoneum off the lower uterine segment. I continually pushed the bladder back and I took excessively great care and I was eventually able to dissect the vesicouterine peritoneum off the lower uterine segment. There was an area of infarcted epiploica that was removed with cautery and sent for pathology. I then dissected in a V fashion towards the midline between the uterosacral ligaments. This allowed me to skeletonize the uterine vessels bilaterally. The balloon on the JESSICA was insufflated. This allowed me to see the JESSICA circumferentially. I then performed a colpotomy anteriorly and then amputate with cervix away from the vaginal fornix. I then continued the colpotomy circumferentially. Once this was performed, the environmental assistant removed the uterus through the vagina. A sponge was left in the vagina to maintain pneumoperitoneum. I then began closure of the vaginal cuff. The uterus was left in the vagina to maintain pneumoperitoneum. I closed the apices of the vaginal cuff with 2-0 Vicryl V lock sutures with a colposuspension through the uterosacral ligaments. This suspended the apices of the vaginal cuff. I extended this to the midline from both sides and overlapped the V lock sutures in the midline. Excellent closure is noted and hemostasis is achieved. At this point the cyst on the right ovary was still bleeding. And appeared to be an endometrioma. I decided that it would not be prudent to excise the cyst as it was an endometrioma and there was extensive bleeding so I made the decision to remove the ovary due to the destruction from the endometrioma and the bleeding. At this point I clamped the infundibulopelvic ligament with the bipolar cautery and cauterized and then cut. There was good hemostasis. I could visualize the ureter the entire time and it was well away from the dissection. I now extended the right upper quadrant incision and inserted the EndoCatch and removed the entire ovary. I now removed the gas and the instruments after copiously irrigating and placing FloSeal All the needles were removed from the patient's abdomen. The deep incisions were closed with 0-vicryl in figure of eight fashion and the skin incisions were closed with 4-0 Monocryl in subcuticular fashion. Skin glue and bandages were placed. Following the case, instrument counts were correct. The patient was repositioned in the supine position and awakened from general anesthesia without difficulty. She was taken to recovery in stable condition. Due to risk of bleeding from the extensive adhesiolysis, she will be observed overnight. Findings of the Procedure There were extensive adhesions. The omentum and bowel were adherent to the posterior culdesac, obliterating the culdesac. The right tube and ovary and the left tube and ovary were adherent to the posterior uterus. There was an endometrioma of the right ovary Allergies and Home Medications Allergies Coded Allergies: Sulfa (Sulfonamide Antibiotics) (Verified Allergy, Mild, RASH, GI UPSET, 07/25/18) Home Medications Acetaminophen 500 Mg Tablet, 1,000 MG PO Q8H PRN for PAIN-MILD OR TEMP > 101 Prescribed by: LUDA ZHENG on 08/12/18 1707 Amoxicillin/Potassium Clav 1 Each Tablet, 1 EACH PO BID Prescribed by: LUDA ZHENG on 08/13/18 1055 Docusate Sodium 100 Mg Capsule, 100 MG PO BID PRN for CONSTIPATION-1ST LINE Prescribed by: LUDA ZHENG on 08/03/18918 Fish Oil/Dha/Epa 1 Each Capsule, 1 EACH PO DAILY, (Reported) Hydromorphone HCl 2 Mg Tablet, 2 MG PO Q4H PRN for PAIN-SEVERE Prescribed by: LUDA ZHENG on 08/12/181706 Ibuprofen 600 Mg Tablet, 600 MG PO Q6H PRN for PAIN-MILD Prescribed by: LUDA ZHENG on 08/03/18918 Metronidazole 500 Mg Tablet, 500 MG PO TID Prescribed by: LUDA ZHENG on 08/13/18 1055 Phenazopyridine HCl 100 Mg Tablet, 200 MG PO TIDPC Prescribed by: LUDA ZHENG on 08/12/181706 Promethazine HCl 25 Mg Tablet, 25 MG PO Q6H PRN for NAUSEA/VOMITING Prescribed by: LUDA ZHENG on 08/04/18 0828 Simethicone 80 Mg Tab.chew, 40 MG PO TID PRN for INDIGESTION Prescribed by: LUDA ZHENG on 08/03/18918 Tolterodine Tartrate 4 Mg Cap, 4 MG PO HS Prescribed by: LUDA ZHENG on 08/12/181706 Zolpidem Tartrate 10 Mg Tablet, 10 MG PO DAILY, (Reported) Patient Home Medication List Home Medication List Reviewed: LUDA Stephen DO Aug 02, 2018 12:51
[2018-08-02] MEDS ORDERED: ONDANSETRON 4 MG/2 ML (SDV) Z0FRAN IVP PRN (13:00)
[2018-08-02] MEDS ORDERED: MEPERIDINE (DEMEROL) INJ 50 MG/ML IVP ONE (13:00)
[2018-08-02] MEDS ORDERED: PROMETHAZINE INJ 25 MG/ML (PHENERGAN) AMP IVP ONE (13:00)
[2018-08-02] MEDS ORDERED: morphine INJ 10 MG/ML 1ML (SYR OR VIAL) IVP ONE (13:00)
[2018-08-02] MEDS ORDERED: HYDROmorphone 2 MG/ML VIAL (DILAUDID) IV ONE (13:00)
[2018-08-02] MEDS ORDERED: morphine INJ 10 MG/ML 1ML (SYR OR VIAL) ONE (13:01)
[2018-08-02] MEDS ORDERED: HYDROmorphone 2 MG/ML VIAL (DILAUDID) ONE (13:12)
--- NOTE | 2018-08-02 13:30 | Anesthesia-General Post-Op ---
General Patient Condition Mental Status/LOC: Same as Preop Cardiovascular: Satisfactory Nausea/Vomiting: Absent Respiratory: Satisfactory Pain: Controlled Complications: Absent Post Op Complications Complications None Follow Up Care/Instructions Patient Instructions None needed. Anesthesia/Patient Condition Patient Condition Patient is doing well, no complaints, stable vital signs, no apparent adverse anesthesia problems. No complications reported per nursing. VELVET WHITMAN CRNA Aug 02, 2018 13:30
[2018-08-02] MEDS ORDERED: MEPERIDINE (DEMEROL) INJ 50 MG/ML ONE (13:37)
[2018-08-02 14:00] VITALS: BP 99/56
[2018-08-02] MEDS: HYDROmorphone 2 MG/ML VIAL (DILAUDID) IV PRN ×2 (14:30→22:12)
[2018-08-02] MEDS: LACTATED RINGERS 1,000 ML IV SCH (16:09)
[2018-08-02] MEDS ORDERED: FLU QUADRIvalent (5+ YOA) 2018-2019 (AFLURIA) 0.5 ML IM ONE ×2 (16:30→17:00)
[2018-08-02] MEDS: ONDANSETRON 4 MG/2 ML (SDV) Z0FRAN IV PRN ×2 (16:43→22:05)
[2018-08-02 16:44] VITALS: BP 97/56
[2018-08-02] MEDS ORDERED: fentaNYL INJECTION 100 MCG/2 ML AMP IVP ONE ×2 (17:45→18:15)
[2018-08-02 20:30] VITALS: BP 90/58
[2018-08-02] MEDS: HYDROcodone/APAP 7.5 MG/325 MG (LORTAB, LORCET PLUS) TABLET PO PRN (22:01)
[2018-08-03 00:05] VITALS: BP 85/54
[2018-08-03] MEDS: KETOROLAC 30 MG/ML VIAL IV PRN (00:05)
[2018-08-03] MEDS: LACTATED RINGERS 1,000 ML IV SCH ×4 (00:05→21:21)
[2018-08-03 03:55] VITALS: BP 95/61
[2018-08-03] MEDS: HYDROmorphone 2 MG/ML VIAL (DILAUDID) IV PRN ×4 (03:55→17:25)
[2018-08-03] MEDS ORDERED: IBUPROFEN 600 MG (MOTRIN) TAB PO PRN (05:15)
[2018-08-03 08:15] VITALS: BP 105/58
[2018-08-03] MEDS: ONDANSETRON 4 MG/2 ML (SDV) Z0FRAN IV PRN (08:23)
[2018-08-03] MEDS ORDERED: IBUP-844 PO (09:19)
[2018-08-03] MEDS ORDERED: DOCU100C37 PO (09:19)
[2018-08-03] MEDS ORDERED: SIME80TA16 PO (09:19)
[2018-08-03] MEDS ORDERED: HYDR-34 PO (09:19)
--- NOTE | 2018-08-03 09:22 | Discharge Inst-Women's Service ---
Discharge Inst-Women's Serv Depart Medication/Instructions New, Converted or Re-Newed RX: RX on Chart Instructions no lifting over 25 lbs keep stool soft (use stool softener and increased fluids and fiber) use simethicone/gas-x as needed increase mobility do not drive for 7 days nothing in the vagina for 12 weeks showers only remove the bandages in 3 days, may do in the shower; if adherent, do not pull, moisten and remove Final Diagnosis stage 4 endometriosis menorrhagia dysmenorrhea right endometrioma extensive adhesions adenomyosis procedure Robotic assisted hysterectomy with bilateral salpingectomy, right oophorectomy extensive lysis of adhesions Consults/Follow Up Additional Follow Up: Yes (1 week with Meme Ballard for incision check, 12 weeks for pelvic exam with Dr. Sanchez) Activity Activity: Activity as Tolerated Driving Instructions: No Driving for 1 Week NO SMOKING: NO SMOKING Nothing Inside Vagina: No Douching, No Numa, No Tampons Diet Discharge Diet: No Restrictions Symptoms to Report to : Swelling Increased, Bleeding Excessive, Pain Increased, Constipation(Persistant), Fever Over 101 Degrees F, Urination Difficulty, Vaginal Bleeding Increase, Cramps in Feet or Legs, Vaginal Discharge Foul For Any Problems or Questions: Contact Your Physician Skin/Wound Care Infection Signs and Symptoms: Increased Redness, Foul Odor of Wound, Increased Drainage, Skin Itchy or Has a Rash, Increased Swelling, Temperature Above 101 F Operative Area Clean and Dry: You May Remove Bandage (in 3 days) Stitches/Melvin/Dermabond: Dermabond Bathing Instructions: LUDA Tavarez DO Aug 03, 2018 09:22
[2018-08-03] MEDS ORDERED: PROMETHAZINE INJ 25 MG/ML (PHENERGAN) AMP IVP PRN (10:00)
[2018-08-03] MEDS: CATHETER FLUSH 10 ML SYR IV PRN (10:41)
[2018-08-03 12:35] VITALS: BP 111/66
--- NOTE | 2018-08-03 12:58 | Physician Progress Note ---
Progress Note Assessment/Plan Date Seen by Provider: Aug 03, 2018 Time Seen by Provider: 08:30 Events since last exam Pain not well controlled. Could not tolerate oral pain medications due to n nausea and emesis. Feels a little better this morning but has not eaten for fear of emesis. No further emesis since last night but feels nauseous with oral meds so is taking IV meds. Donaldson out at 0600 but has not yet voided. IV fluids continued. Complains of right sided abdominal pain/rib pain and shoulder and chest pain. ( consistent with the post operative gas pain). No flatus yet. No BM. Incisions are covered and intact Assessment/Plan Assessment: POD #1 s/p RaTH, bilateral salpingectomy with right oophorectomy and extensive lysis of adhesions Postoperative pain and nausea Will encourage ambulation today (has not yet been up). Encourage antiemetics and po pain medications with pain to dc home this afternoon 1800 Still has not eaten. Fluids stopped bc she voided, but nausea has returned and unable to tolerate the oral pain medication. Pain is mainly across the chest and the shoulders in addition to the right side all consistent with laparoscopy and gas pain. Will change back to IV Toradol and IV pain meds and antiemetics. Encourage IS, ambulation Hold discharge at this time for possible discharge tomorrow. CMP and CBC are pending. She is afebrile though she states that she has had times of chills and sweats, hands are very cold. She is concerned about this. This does seem to be associated with pain. She does have bowel sounds though distension is slightly increased this evening. Vitals Last set of Vitals Signs Vital Signs Date Time Temp Pulse Resp B/P (MAP) Pulse Ox O2 Delivery O2 Flow Rate FiO2 08/03/18 03:55 98.9 80 18 95/61 (72) 94 Simple Mask I&O I&O Intake and Output 08/03/18 00:00 Intake Total 2160 ml Output Total 500 ml Balance 1660 ml IV Total 2160 ml Output Urine Total 500 ml LUDA ZHENG DO Aug 03, 2018 12:57
[2018-08-03] MEDS: SIMETHICONE 80 MG (MYLICON) CHEW PO PRN ×2 (14:39→21:05)
[2018-08-03 16:30] VITALS: BP 115/56
[2018-08-03] MEDS: HYDROcodone/APAP 7.5 MG/325 MG (LORTAB, LORCET PLUS) TABLET PO PRN (16:37)
[2018-08-03] MEDS ORDERED: fentaNYL INJECTION 100 MCG/2 ML AMP IVP PRN (18:00)
[2018-08-03] MEDS: KETOROLAC 30 MG/ML VIAL IVP SCH (18:24)
[2018-08-03 18:36] LABS: BASOPHILS % (AUTO) 0 % (0-10); EOSINOPHILS % (AUTO) 0 % (0-10); HEMATOCRIT 34 % (35-52); HEMOGLOBIN 11.5 G/DL (11.5-16.0); LYMPHOCYTES # (AUTO) 1.9 X 10^3 (1.0-4.0); LYMPHOCYTES % (AUTO) 17 % (12-44); MEAN CORPUSCULAR HEMOGLOBIN 30 PG (25-34); MEAN CORPUSCULAR HGB CONC 34 G/DL (32-36); MEAN CORPUSCULAR VOLUME 88 FL (80-99); MEAN PLATELET VOLUME 9.5 FL (7.4-10.4); MONOCYTES # (AUTO) 0.9 X 10^3 (0.0-1.0); MONOCYTES % (AUTO) 8 % (0-12); NEUTROPHILS # (AUTO) 8.2 X 10^3 (1.8-7.8); NEUTROPHILS % (AUTO) 75 % (42-75); PLATELET COUNT 296 10^3/uL (130-400); RED BLOOD COUNT 3.84 10^6/uL (4.35-5.85); RED CELL DISTRIBUTION WIDTH 13.1 % (10.0-14.5)
[2018-08-03 18:55] LABS: ALANINE AMINOTRANSFERASE 15 U/L (0-55); ALBUMIN 3.9 GM/DL (3.2-4.5); ALKALINE PHOSPHATASE 67 U/L (40-136); BILIRUBIN,TOTAL 0.6 MG/DL (0.1-1.0); BUN/CREATININE RATIO 10; CALCIUM 8.6 MG/DL (8.5-10.1); CARBON DIOXIDE 24 MMOL/L (21-32); CHLORIDE 107 MMOL/L (98-107); CREATININE SERUM 0.73 MG/DL (0.60-1.30); GFR ESTIMATED > 60; GLUCOSE 95 MG/DL (70-105); POTASSIUM 3.7 MMOL/L (3.6-5.0); SODIUM 140 MMOL/L (135-145); TOTAL PROTEIN 6.2 GM/DL (6.4-8.2)
[2018-08-03 20:00] VITALS: BP 113/57
[2018-08-03] MEDS: oxyCODONE/APAP 5/325MG (PERCOCET 5) TABLET PO PRN (22:02)
[2018-08-04] VITALS: BP 101/58
[2018-08-04] MEDS: KETOROLAC 30 MG/ML VIAL IVP SCH ×2 (00:40→07:28)
[2018-08-04] MEDS: LACTATED RINGERS 1,000 ML IV SCH (00:47)
[2018-08-04 04:00] VITALS: BP 101/56
[2018-08-04] MEDS: oxyCODONE/APAP 5/325MG (PERCOCET 5) TABLET PO PRN ×2 (04:12→09:29)
[2018-08-04] MEDS: CATHETER FLUSH 10 ML SYR IV PRN (07:28)
[2018-08-04] MEDS ORDERED: PROM25TA14 PO (08:28)
[2018-08-04] MEDS ORDERED: OXYC1TAB87 PO (08:28)
--- NOTE | 2018-08-04 08:43 | Physician Progress Note ---
Progress Note Assessment/Plan Date Seen by Provider: Aug 04, 2018 Time Seen by Provider: 08:30 Events since last exam DC held due to nausea and lack of pain control. She has been encouraged to walk and do IS (she was not doing this prior bc "it hurt") . Ice packs and heating pad has helped. She is better this morning and has walked more regularly. Will plan dc home later today Labs were wnl. Exam - abdomen is soft, decreased distension and increased bowel sounds Assessment/Plan Assessment: POD #2 s/p RaTH, bilateral salpingectomy with right oophorectomy and extensive lysis of adhesions 2.Postoperative pain and nausea Vitals Last set of Vitals Signs Vital Signs Date Time Temp Pulse Resp B/P (MAP) Pulse Ox O2 Delivery O2 Flow Rate FiO2 08/04/18 04:00 97.3 84 18 101/56 (71) 93 Room Air 08/03/18 20:05 2.00 I&O I&O Intake and Output 08/04/18 00:00 Intake Total 5090 ml Output Total 4150 ml Balance 940 ml Intake Oral 3090 ml IV Total 2000 ml Output Urine Total 4150 ml # Emeses 50 Labs Laboratory Tests 08/03/18 18:31: White Blood Count 11.0, Red Blood Count 3.84L, Hemoglobin 11.5, Hematocrit 34L, Mean Corpuscular Volume 88, Mean Corpuscular Hemoglobin 30, Mean Corpuscular Hemoglobin Concent 34, Red Cell Distribution Width 13.1, Platelet Count 296, Mean Platelet Volume 9.5, Neutrophils (%) (Auto) 75, Lymphocytes (%) (Auto) 17, Monocytes (%) (Auto) 8, Eosinophils (%) (Auto) 0, Basophils (%) (Auto) 0, Neutrophils # (Auto) 8.2H, Lymphocytes # (Auto) 1.9, Monocytes # (Auto) 0.9, Eosinophils # (Auto) 0.0, Basophils # (Auto) 0.0, Sodium Level 140, Potassium Level 3.7, Chloride Level 107, Carbon Dioxide Level 24, Anion Gap 9, Blood Urea Nitrogen 7, Creatinine 0.73, Estimat Glomerular Filtration Rate > 60, BUN/ Creatinine Ratio 10, Glucose Level 95, Calcium Level 8.6, Corrected Calcium 8.7 , Total Bilirubin 0.6, Aspartate Amino Transf (AST/SGOT) 15, Alanine Aminotransferase (ALT/SGPT) 15, Alkaline Phosphatase 67, Total Protein 6.2L, Albumin 3.9 LUDA ZHENG DO Aug 04, 2018 08:43
[2018-08-04] MEDS ORDERED: RX-OXYCODONE/APAP 5-325 MG #4 TAB PK PO PRN (08:45)
[2018-08-04] MEDS ORDERED: RX-ONDANSETRON 4 MG ODT (ZOFRAN) PPK #4 PO PRN (08:45)
[2018-08-12] MEDS ORDERED: HYDR2TAB6 PO (17:07)
[2018-08-12] MEDS ORDERED: TOLTA4 PO (17:07)
[2018-08-12] MEDS ORDERED: PHEN-826 PO (17:07)
[2018-08-12] MEDS ORDERED: ACET-77 PO (17:07)
[2018-08-13] MEDS ORDERED: METR500T PO (10:55)
[2018-08-13] MEDS ORDERED: AMOX-358 PO (10:55)
== END 2018-08-04 10:15 | disposition home or self-care (01) ==
LOC: SDC 07:50 → WS 14:00 → SDC 08-04 10:15
PROVIDERS: ATTEND Obstetrics & Gynecology
DX: N80.0 Endometriosis of uterus (principal); N80.1 Endometriosis of ovary; N83.11 Corpus luteum cyst of right ovary; N94.89 Other specified conditions associated with female genital organs and menstrual cycle; N83.8 Other noninflammatory disorders of ovary, fallopian tube and broad ligament; N94.5 Secondary dysmenorrhea; N92.0 Excessive and frequent menstruation with regular cycle; N73.6 Female pelvic peritoneal adhesions (postinfective); I34.1 Nonrheumatic mitral (valve) prolapse; G89.18 Other acute postprocedural pain; K91.89 Other postprocedural complications and disorders of digestive system; R11.0 Nausea
CPT/HCPCS: 36415; 80053; 84703; 85025; 86850; 86900; 86901; 88307; 94664

== ENCOUNTER 2018-08-11 16:10 | Observation (INO) | payer BC ==
[~2018-08-11] VITALS: Ht 167.6 cm; Wt 83.0 kg
[~2018-08-11 16:10] MED LIST changes: -ACET-77 PO; -AMOX-358 PO; -HYDR2TAB6 PO; -METR500T PO; -PHEN-826 PO; -TOLTA4 PO
[2018-08-11 16:41] VITALS: BP 125/72
[2018-08-11] MEDS ORDERED: PIPERACILLIN/TAZO 4.5 GM/NS 100 ML IV NR ×2 (17:15)
[2018-08-11] MEDS ORDERED: CATHETER FLUSH 10 ML SYR IV PRN (17:15)
[2018-08-11] MEDS ORDERED: RECEIVED CONTRAST (Hold Metformin) IV SCH (17:15)
[2018-08-11] MEDS ORDERED: NS 250 ML (IVPB) BAG IV ONE (17:15)
[2018-08-11] MEDS ORDERED: IOHEXOL 350 MG/ML 100 ML (OMNIPAQUE 350) VIAL IV ONE (17:15)
[2018-08-11] MEDS: HYDROmorphone 2 MG/ML VIAL (DILAUDID) IV PRN ×2 (17:37→21:48)
[2018-08-11] MEDS: ACETAMINOPHEN 500 MG TAB (TYLENOL) PO PRN (17:37)
[2018-08-11] MEDS: NS IV 1000 ML 1,000 ML IV SCH (17:38)
--- NOTE | 2018-08-11 18:18 | Diagnostic Imaging Report ---
PROCEDURE: CT abdomen and pelvis with and without contrast. TECHNIQUE: Precontrast acquisitions were acquired through the abdomen and pelvis. Multiple contiguous axial images were obtained through the abdomen and pelvis after the administration of intravenous contrast. INDICATION: Mid/lower abdominal pain status post recent hysterectomy. COMPARISON: None. FINDINGS: Included portions of the lung bases are clear. CT ABDOMEN: Normal appendix cannot be definitively identified, but there is no indirect or secondary evidence of acute appendicitis. Small bowel loops are nondistended. Liver is diffusely hypodense. No focal hepatic mass-type lesions are seen. Otherwise, the liver, kidneys, adrenal glands, spleen, and pancreas have a normal CT appearance. There is no loculated fluid collection, free fluid, nor free air within the abdomen. There is a single slightly prominent appearing, yet subcentimeter retroperitoneal lymph node anterior to the left psoas muscle just above the aortic bifurcation that measures 8 mm in shortest axis dimension (image 43, series 3). Otherwise, no abnormal mesenteric or retroperitoneal adenopathy is seen. Evaluation of the anterior subcutaneous soft tissues demonstrates area of stranding of the subcutaneous fat in the right upper abdominal quadrant. There is a small amount of gas at the umbilicus as well. Findings may relate to recent hysterectomy. No focal loculated fluid collections are identified within the subcutaneous soft tissues. CT PELVIS: There is, however, a focal loculated fluid collection within the lower pelvis just superior to the vaginal cuff interposed between the urinary bladder and rectum. It measures 2.2 x 6.9 cm (image 76, series 3). There is a moderate amount of stranding of the surrounding fat. Note is made of hyperdense material within the vaginal cuff. Please note, however, that this was present on the noncontrast exam and therefore cannot be assumed to represent cystic vaginal fistula. There may be trace amount of free fluid within the pelvis as well. There is no free air. A few scattered prominent bilateral iliac chain lymph nodes are noted. Bony structures show no acute abnormalities. IMPRESSION: 1. Focal fluid collection in the pelvis as described above. Given history of recent surgery, this does raise concern for potential abscess. Other postsurgical fluid collection such as seroma, hematoma, or lymphocele is also considered. 2. A few borderline prominent retroperitoneal and bilateral iliac chain lymph nodes; possibly reactive. 3. Hepatic steatosis. Dictated by: Dictated on workstation # [id number]
[2018-08-11] MEDS: KETOROLAC 30 MG/ML VIAL IVP SCH (18:30)
[2018-08-11] MEDS ORDERED: PROMETHAZINE INJ 25 MG/ML (PHENERGAN) AMP ONE (19:55)
[2018-08-11] MEDS: PROMETHAZINE INJ 25 MG/ML (PHENERGAN) AMP IVP PRN (20:00)
[2018-08-11 20:32] VITALS: BP 112/66
[2018-08-11] MEDS: metroNIDAZOLE 500MG/100ML IVPB 100 ML IV SCH (21:48)
[2018-08-11] MEDS: PIPERACILLIN SODIUM/TAZOBACTAM 4.5 GM in NS (IVPB) 100 ML IV SCH (23:34)
[2018-08-12] MEDS: KETOROLAC 30 MG/ML VIAL IVP SCH ×4 (01:00→20:15)
[2018-08-12 01:22] VITALS: BP 99/54
[2018-08-12] MEDS: HYDROmorphone 2 MG/ML VIAL (DILAUDID) IV PRN ×3 (02:07→12:03)
--- OUTSIDE RECORDS SUMMARY | 2018-08-12 03:27 | XMS REPORT | Continuity of Care Document ---
Author Author [facility] Organization [facility] Address Unknown Phone Unavailable Allergies Active Description Code Type Severity Reaction Onset Reported/Identified Relationship to Patient Clinical Status Yes sulfa drug 16 Drug N/A N/A Yes Sulfa (Sulfonamide Antibiotics) [id number] Drug Allergy Mild RASH, GI UPSET 07/25/2018 [...] NRG Blood group antibody screen NEGATIVE NRG Urine beta human chorionic gonadotropin (hCG) measurement - 08/02/18 07:57 Urine beta human chorionic gonadotropin (hCG) measurement NEGATIVE NEGATIVE Blood type T Indirect antibody screen panel - 08/02/18 08:10 ABO+Rh group BP NRG Transfusion band number [id number] NRG Blood group antibody screen NEGATIVE NRG Complete blood count (CBC) with automated white blood cell (WBC) differential - 08/03/18 18:31 Blood leukocytes automated count (number/volume) 11.0 10*3/uL 4.3-11.0 Blood erythrocytes automated count (number/volume) 3.84 10*6/uL 4.35-5.85 Venous blood hemoglobin measurement (mass/volume) 11.5 g/dL 11.5-16.0 Blood hematocrit (volume fraction) 34 % 35-52 Automated erythrocyte mean corpuscular volume 88 [foz_us] 80-99 Automated erythrocyte mean corpuscular hemoglobin (mass per erythrocyte) 30 pg 25-34 Automated erythrocyte mean corpuscular hemoglobin concentration measurement ( mass/volume) 34 g/dL 32-36 Automated erythrocyte distribution width ratio 13.1 % 10.0-14.5 Automated blood platelet count (count/volume) 296 10*3/uL 130-400 Automated blood platelet mean volume measurement 9.5 [foz_us] 7.4-10.4 Automated blood neutrophils/100 leukocytes 75 % 42-75 Automated blood lymphocytes/100 leukocytes 17 % 12-44 Blood monocytes/100 leukocytes 8 % 0-12 Automated blood eosinophils/100 leukocytes 0 % 0-10 Automated blood basophils/100 leukocytes 0 % 0-10 Blood neutrophils automated count (number/volume) 8.2 10*3 1.8-7.8 Blood lymphocytes automated count (number/volume) 1.9 10*3 1.0-4.0 Blood monocytes automated count (number/volume) 0.9 10*3 0.0-1.0 Automated eosinophil count 0.0 10*3/uL 0.0-0.3 Automated blood basophil count (count/volume) 0.0 10*3/uL 0.0-0.1 Comprehensive metabolic panel - 08/03/18 18:31 Serum or plasma sodium measurement (moles/volume) 140 mmol/L 135-145 Serum or plasma potassium measurement (moles/volume) 3.7 mmol/L 3.6-5.0 Serum or plasma chloride measurement (moles/volume) 107 mmol/L 98-107 Carbon dioxide 24 mmol/L 21-32 Serum or plasma anion gap determination (moles/volume) 9 mmol/L 5-14 Serum or plasma urea nitrogen measurement (mass/volume) 7 mg/dL 7-18 Serum or plasma creatinine measurement (mass/volume) 0.73 mg/dL 0.60-1.30 Serum or plasma urea nitrogen/creatinine mass ratio 10 NRG Serum or plasma creatinine measurement with calculation of estimated glomerular filtration rate > NRG Serum or plasma glucose measurement (mass/volume) 95 mg/dL 70-105 Serum or plasma calcium measurement (mass/volume) 8.6 mg/dL 8.5-10.1 Serum or plasma total bilirubin measurement (mass/volume) 0.6 mg/dL 0.1-1.0 Serum or plasma alkaline phosphatase measurement (enzymatic activity/volume) 67 U/L 40-136 Serum or plasma aspartate aminotransferase measurement (enzymatic activity/ volume) 15 U/L 5-34 Serum or plasma alanine aminotransferase measurement (enzymatic activity/volume ) 15 U/L 0-55 Serum or plasma protein measurement (mass/volume) 6.2 g/dL 6.4-8.2 Serum or plasma albumin measurement (mass/volume) 3.9 g/dL 3.2-4.5 CALCIUM CORRECTED 8.7 mg/dL 8.5-10.1 Encounters ACCT No. Visit Date/Time Discharge Status Pt. Type Provider Facility Loc./Unit Complaint [id number] 05/30/2018 09:27:00 ACT Unknown [id number] 06/17/2018 12:44:30 06/17/2018 23:59:59 DIS Outpatient JENNIFER RAMIREZ [facility] RAD flank pain, hematuria [id number] 09/06/2017 04:11:00 09/06/2017 07:20:00 DIS Emergency BETH RAMOS [facility] ED ED visit [id number] 06/24/2018 10:00:35 06/24/2018 23:59:59 CLS Outpatient Jennifer Ramirez [id number] 06/20/2018 16:26:44 06/20/2018 23:59:59 CLS Outpatient Jennifer Ramirez [id number] 05/30/2018 14:59:05 05/30/2018 23:59:59 CLS Outpatient Julienne Basurto [id number] 05/26/2018 09:03:17 05/26/2018 23:59:59 CLS Outpatient Luis Iglesias [id number] 05/23/2018 16:01:46 05/23/2018 23:59:59 CLS Outpatient Jennifer Ramirez [id number] 03/08/2018 12:24:45 03/08/2018 23:59:59 CLS Outpatient Luis Iglesias [id number] 01/23/2018 14:44:09 01/23/2018 23:59:59 CLS Outpatient Camilo Bocanegra [id number] 10/17/2016 13:57:02 10/17/2016 23:59:59 CLS Outpatient Jeffy Lizama [id number] 05/30/2018 14:05:00 Document Registration [id number] 06/01/2018 06:06:00 Document Registration [id number] 11/15/2017 15:20:00 11/15/2017 23:59:59 CLS Outpatient RICKEY LAGOS [id number] 05/30/2018 14:05:00 Document Registration [id number] 05/30/2018 14:05:00 Document Registration [id number] 08/02/2018 07:50:00 08/04/2018 10:15:00 DIS Outpatient LUDA ZHENG DO [facility] [place] [id number] 07/25/2018 12:56:00 07/25/2018 14:33:00 DIS Outpatient LUDA ZHENG DO [facility] [place] [id number] 05/30/2018 14:05:00 Document Registration [id number] 06/02/2018 12:08:00 Document Registration [id number] 06/25/2018 14:05:00 Document Registration
[2018-08-12] MEDS: PROMETHAZINE INJ 25 MG/ML (PHENERGAN) AMP IVP PRN (05:21)
[2018-08-12] MEDS: ACETAMINOPHEN 500 MG TAB (TYLENOL) PO PRN (05:21)
[2018-08-12 05:36] VITALS: BP 100/65
[2018-08-12] MEDS: metroNIDAZOLE 500MG/100ML IVPB 100 ML IV SCH ×3 (05:36→21:47)
[2018-08-12] MEDS: TOLTERODINE LA 2 MG (DETROL LA) CAP PO ONE ×2 (06:42→06:49)
[2018-08-12 07:34] LABS: BASOPHILS % (AUTO) 0 % (0-10); EOSINOPHILS # (AUTO) 0.3 10^3/uL (0.0-0.3); EOSINOPHILS % (AUTO) 2 % (0-10); HEMATOCRIT 32 % (35-52); HEMOGLOBIN 10.9 G/DL (11.5-16.0); LYMPHOCYTES # (AUTO) 1.7 X 10^3 (1.0-4.0); LYMPHOCYTES % (AUTO) 14 % (12-44); MEAN CORPUSCULAR HEMOGLOBIN 29 PG (25-34); MEAN CORPUSCULAR HGB CONC 34 G/DL (32-36); MEAN CORPUSCULAR VOLUME 87 FL (80-99); MEAN PLATELET VOLUME 9.2 FL (7.4-10.4); MONOCYTES # (AUTO) 0.8 X 10^3 (0.0-1.0); MONOCYTES % (AUTO) 7 % (0-12); NEUTROPHILS # (AUTO) 9.4 X 10^3 (1.8-7.8); NEUTROPHILS % (AUTO) 77 % (42-75); PLATELET COUNT 432 10^3/uL (130-400); RED BLOOD COUNT 3.71 10^6/uL (4.35-5.85); RED CELL DISTRIBUTION WIDTH 12.9 % (10.0-14.5); WHITE BLOOD COUNT 12.3 10^3/uL (4.3-11.0)
[2018-08-12] MEDS: PIPERACILLIN SODIUM/TAZOBACTAM 4.5 GM in NS (IVPB) 100 ML IV SCH ×2 (07:46→16:23)
[2018-08-12 07:50] VITALS: BP 118/56
[2018-08-12 07:57] LABS: ALANINE AMINOTRANSFERASE 30 U/L (0-55); ALBUMIN 3.5 GM/DL (3.2-4.5); ALKALINE PHOSPHATASE 177 U/L (40-136); BILIRUBIN,TOTAL 0.6 MG/DL (0.1-1.0); BUN/CREATININE RATIO 9; CALCIUM 8.9 MG/DL (8.5-10.1); CARBON DIOXIDE 22 MMOL/L (21-32); CHLORIDE 106 MMOL/L (98-107); CREATININE SERUM 0.76 MG/DL (0.60-1.30); GFR ESTIMATED > 60; GLUCOSE 106 MG/DL (70-105); POTASSIUM 3.9 MMOL/L (3.6-5.0); SODIUM 140 MMOL/L (135-145); TOTAL PROTEIN 6.6 GM/DL (6.4-8.2)
[2018-08-12] MEDS: NS IV 1000 ML 1,000 ML IV SCH ×2 (08:41→16:30)
--- NOTE | 2018-08-12 09:46 | Physician Progress Note ---
Progress Note Assessment/Plan Date Seen by Provider: Aug 12, 2018 Time Seen by Provider: 09:30 Events since last exam IV started, IV antibiotics started. CT with and without show fluid collection suggestive of hematoma (most likely), seroma or abscess. She has not take much po due to pain and RN reported that she had no emesis. She does have clear liquid diet ordered. Has not had BM since admission. Did have UO but it was low output so straight cath was done and she had no post void residual. Pain seems out of proportion to the exam. She has dilaudid and toradol for pain. Started detrol for bladder spasm and pyridium for bladder pain. WBC from office labs 13 and hemoglobin 12. CMP wnl except AFP. UA negative with SG of 1.005. Rare sq and otherwise completely negative. Culture sent due to complaints however. This was a straight cath with 500 ml out. 99 temp on admission. Afebrile throughout the night. However, RN reported T of 100 this am. SCDs are on. IS is ordered and encouraged. Will plan ambulation today and up in chair. Reviewed CT with the radiologist. There is no ureteral injury no bladder extravasation, no bowel injury. There is a fluid collection as described above and this corresponds to her exam. Will continue IV antibiotics and IV pain medications and Toradol. Continue Detrol and pyridium Assessment/Plan see above Vitals Last set of Vitals Signs Vital Signs Date Time Temp Pulse Resp B/P (MAP) Pulse Ox O2 Delivery O2 Flow Rate FiO2 08/12/18 05:36 98.5 77 20 100/65 (77) 98 Room Air I&O I&O Intake and Output 08/12/18 00:00 Intake Total 215 ml Balance 215 ml Intake Oral 15 ml IV Total 200 ml Labs Laboratory Tests 08/12/18 07:27: White Blood Count 12.3H, Red Blood Count 3.71L, Hemoglobin 10.9L, Hematocrit 32L , Mean Corpuscular Volume 87, Mean Corpuscular Hemoglobin 29, Mean Corpuscular Hemoglobin Concent 34, Red Cell Distribution Width 12.9, Platelet Count 432H, Mean Platelet Volume 9.2, Neutrophils (%) (Auto) 77H, Lymphocytes (%) (Auto) 14 , Monocytes (%) (Auto) 7, Eosinophils (%) (Auto) 2, Basophils (%) (Auto) 0, Neutrophils # (Auto) 9.4H, Lymphocytes # (Auto) 1.7, Monocytes # (Auto) 0.8, Eosinophils # (Auto) 0.3, Basophils # (Auto) 0.0, Sodium Level 140, Potassium Level 3.9, Chloride Level 106, Carbon Dioxide Level 22, Anion Gap 12, Blood Urea Nitrogen 7, Creatinine 0.76, Estimat Glomerular Filtration Rate > 60, BUN/ Creatinine Ratio 9, Glucose Level 106H, Calcium Level 8.9, Corrected Calcium 9.3 , Total Bilirubin 0.6, Aspartate Amino Transf (AST/SGOT) 21, Alanine Aminotransferase (ALT/SGPT) 30, Alkaline Phosphatase 177H, Total Protein 6.6, Albumin 3.5 Radiology NAME: SUGEY ERVIN [facility] REC#: [id number] PT STATUS: ADM Kristian : 1980 PHYSICIAN: LUDA ZHENG DO ADMIT DATE: 08/11/18/WS Draft Date of Exam:08/11/18 CT ABDOMEN/PELVIS W WO PROCEDURE: CT abdomen and pelvis with and without contrast. TECHNIQUE: Precontrast acquisitions were acquired through the abdomen and pelvis. Multiple contiguous axial images were obtained through the abdomen and pelvis after the administration of intravenous contrast. INDICATION: Mid/lower abdominal pain status post recent hysterectomy. COMPARISON: None. FINDINGS: Included portions of the lung bases are clear. CT ABDOMEN: Normal appendix cannot be definitively identified, but there is no indirect or secondary evidence of acute appendicitis. Small bowel loops are nondistended. Liver is diffusely hypodense. No focal hepatic mass-type lesions are seen. Otherwise, the liver, kidneys, adrenal glands, spleen, and pancreas have a normal CT appearance. There is no loculated fluid collection, free fluid, nor free air within the abdomen. There is a single slightly prominent appearing, yet subcentimeter retroperitoneal lymph node anterior to the left psoas muscle just above the aortic bifurcation that measures 8 mm in shortest axis dimension (image 43, series 3). Otherwise, no abnormal mesenteric or retroperitoneal adenopathy is seen. Evaluation of the anterior subcutaneous soft tissues demonstrates area of stranding of the subcutaneous fat in the right upper abdominal quadrant. There is a small amount of gas at the umbilicus as well. Findings may relate to recent hysterectomy. No focal loculated fluid collections are identified within the subcutaneous soft tissues. CT PELVIS: There is, however, a focal loculated fluid collection within the lower pelvis just superior to the vaginal cuff interposed between the urinary bladder and rectum. It measures 2.2 x 6.9 cm (image 76, series 3). There is a moderate amount of stranding of the surrounding fat. Note is made of hyperdense material within the vaginal cuff. Please note, however, that this was present on the noncontrast exam and therefore cannot be assumed to represent cystic vaginal fistula. There may be trace amount of free fluid within the pelvis as well. There is no free air. A few scattered prominent bilateral iliac chain lymph nodes are noted. Bony structures show no acute abnormalities. IMPRESSION: 1. Focal fluid collection in the pelvis as described above. Given history of recent surgery, this does raise concern for potential abscess. Other postsurgical fluid collection such as seroma, hematoma, or lymphocele is also considered. 2. A few borderline prominent retroperitoneal and bilateral iliac chain lymph nodes; possibly reactive. 3. Hepatic steatosis. Dictated on workstation # [id number] Dict: 08/11/18 1807 Trans: 08/11/18 181 [id number] Interpreted by: LOAN PULLIAM MD Electronically signed by: Focused Exam Respiratory: Lungs Clear, Normal Breath Sounds Cardiovascular: Regular Rate, Rhythm Diagnosis/Problems Diagnosis/Problems (1) Postoperative lower abdominal pain Status: Acute Assessment & Plan: IV pain medications and antiemetics Clear liquid diet CT done (2) Abdominal fluid collection Status: Acute Assessment & Plan: Concern for infection- IV antibiotics (broad spectrum Zosyn and Flagyl) Monitor for improvement. Consider drainage if no improvement, but it is small and likely loculated (3) Hematoma, postoperative Status: Acute Assessment & Plan: as above LUDA ZHENG DO Aug 12, 2018 9:46 am
[2018-08-12] MEDS: PHENAZOPYRIDINE 100 MG (PYRIDIUM) TABLET PO SCH ×3 (10:56→21:47)
[2018-08-12 13:40] VITALS: BP 115/68
--- NOTE | 2018-08-12 16:08 | Physician Progress Note ---
Progress Note Assessment/Plan Date Seen by Provider: Aug 12, 2018 Time Seen by Provider: 11:00 Events since last exam Reports that pain is better with Dilaudid. But worst pain was after the straight cath. She has since been started on Detrol LA and Pyridium. In addition she reports that she had a sudden gush of fluid from the vagina ( states it felt like her period starting) and then had a clear spot on the bed with some blood. States it was not urine. Has not had anything further. States that since that time, however, her cramping pain has been improved. She still is not hungry but not nauseous either. Has had increase Urine output. She states that the dilaudid starts to wear off before she is due for another dose. States that it was held last night because the nurse thought that it was causing more spasms. Patient reports that dilaudid has helped nausea ( suggesting that she has had nausea due to pain). In addition, she reports no history of taking pain medications Only would take something at time of menses bc they were so bad. states that she does not take pain medications regularly but that it is "always hard to control her pain after surgery". Will increase the detrol to 4 mg LA. Also change to dilaudid orally. Continue IV antibiotics, IV antiemetics, Iv toradol and po tylenol and po dilaudid Assessment/Plan see above Vitals Last set of Vitals Signs Vital Signs Date Time Temp Pulse Resp B/P (MAP) Pulse Ox O2 Delivery O2 Flow Rate FiO2 08/12/18 13:40 99.1 75 18 115/68 (84) 97 Room Air I&O I&O Intake and Output 08/12/18 00:00 Intake Total 215 ml Balance 215 ml Intake Oral 15 ml IV Total 200 ml Labs Laboratory Tests 08/12/18 07:27: White Blood Count 12.3H, Red Blood Count 3.71L, Hemoglobin 10.9L, Hematocrit 32L , Mean Corpuscular Volume 87, Mean Corpuscular Hemoglobin 29, Mean Corpuscular Hemoglobin Concent 34, Red Cell Distribution Width 12.9, Platelet Count 432H, Mean Platelet Volume 9.2, Neutrophils (%) (Auto) 77H, Lymphocytes (%) (Auto) 14 , Monocytes (%) (Auto) 7, Eosinophils (%) (Auto) 2, Basophils (%) (Auto) 0, Neutrophils # (Auto) 9.4H, Lymphocytes # (Auto) 1.7, Monocytes # (Auto) 0.8, Eosinophils # (Auto) 0.3, Basophils # (Auto) 0.0, Sodium Level 140, Potassium Level 3.9, Chloride Level 106, Carbon Dioxide Level 22, Anion Gap 12, Blood Urea Nitrogen 7, Creatinine 0.76, Estimat Glomerular Filtration Rate > 60, BUN/ Creatinine Ratio 9, Glucose Level 106H, Calcium Level 8.9, Corrected Calcium 9.3 , Total Bilirubin 0.6, Aspartate Amino Transf (AST/SGOT) 21, Alanine Aminotransferase (ALT/SGPT) 30, Alkaline Phosphatase 177H, Total Protein 6.6, Albumin 3.5 Diagnosis/Problems Diagnosis/Problems (1) Postoperative lower abdominal pain Status: Acute Assessment & Plan: IV pain medications and antiemetics Clear liquid diet CT done (2) Abdominal fluid collection Status: Acute Assessment & Plan: Concern for infection- IV antibiotics (broad spectrum Zosyn and Flagyl) Monitor for improvement. Consider drainage if no improvement, but it is small and likely loculated (3) Hematoma, postoperative Status: Acute Assessment & Plan: as above LUDA ZHENG DO Aug 12, 2018 16:08
[2018-08-12 16:21] VITALS: BP 110/66
[2018-08-12] MEDS: HYDROmorphone (DILAUDID) 2 MG TAB PO PRN ×2 (16:22→21:36)
[2018-08-12] MEDS ORDERED: PHEN-826 PO ×2 (17:07)
[2018-08-12] MEDS ORDERED: TOLTA4 PO ×2 (17:07)
[2018-08-12] MEDS ORDERED: ACET-77 PO ×2 (17:07)
[2018-08-12] MEDS ORDERED: HYDR2TAB6 PO ×2 (17:07)
--- NOTE | 2018-08-12 17:08 | Discharge Inst-Women's Service ---
Discharge Inst-Women's Serv Depart Medication/Instructions New, Converted or Re-Newed RX: RX on Chart Final Diagnosis postoperative pain pelvic hematoma Consults/Follow Up Additional Follow Up: Yes (2 weeks with Meme Ballard and previously scheduled appt with Dr Zheng) Activity Activity: Activity as Tolerated Driving Instructions: You May Drive NO SMOKING: NO SMOKING Nothing Inside Vagina: No Douching, No [place], No Tampons Diet Discharge Diet: No Restrictions Symptoms to Report to : Bleeding Excessive, Pain Increased, Fever Over 101 Degrees F, Vaginal Bleeding Increase, Cramps in Feet or Legs, Vaginal Discharge Foul For Any Problems or Questions: Contact Your Physician Skin/Wound Care Infection Signs and Symptoms: Increased Redness, Foul Odor of Wound, Increased Drainage, Skin Itchy or Has a Rash, Increased Swelling, Temperature Above 101 F LUDA ZHENG DO Aug 12, 2018 17:08
[2018-08-12] MEDS ORDERED: FLU QUADRIvalent (5+ YOA) 2018-2019 (AFLURIA) 0.5 ML IM ONE (19:45)
[2018-08-12] MEDS ORDERED: TOLTERODINE LA 4 MG (DETROL) CAP PO SCH (21:00)
[2018-08-12 21:34] VITALS: BP 103/70
[2018-08-13] MEDS: PIPERACILLIN SODIUM/TAZOBACTAM 4.5 GM in NS (IVPB) 100 ML IV SCH ×2 (00:29→08:55)
[2018-08-13 02:23] VITALS: BP 106/73
[2018-08-13] MEDS: KETOROLAC 30 MG/ML VIAL IVP SCH ×2 (02:24→08:53)
[2018-08-13] MEDS: HYDROmorphone (DILAUDID) 2 MG TAB PO PRN ×3 (02:25→11:49)
[2018-08-13] MEDS: NS IV 1000 ML 1,000 ML IV SCH (05:42)
[2018-08-13] MEDS: metroNIDAZOLE 500MG/100ML IVPB 100 ML IV SCH ×2 (05:58→12:59)
[2018-08-13 06:00] VITALS: BP 104/72
[2018-08-13 08:35] VITALS: BP 117/78
[2018-08-13] MEDS: PHENAZOPYRIDINE 100 MG (PYRIDIUM) TABLET PO SCH (08:53)
--- NOTE | 2018-08-13 08:53 | Diagnostic Imaging Report ---
PROCEDURE: CT pelvis without contrast. TECHNIQUE: Multiple contiguous axial images were obtained through the pelvis without the use of intravenous contrast. Sagittal and coronal reformations were performed. INDICATION: Patient status post hysterectomy with continued pelvic pain and pelvic hematoma. Study is performed for followup. Correlation is made with recent CT study performed on 08/11/2018. Visualized urinary bladder is unremarkable. The uterus is surgically absent. There is a small amount of residual fluid in the midline of the pelvis adjacent to the vaginal cuff and extending towards the left. However, this appears to be improved, now measuring approximately 6 cm x 1.7 as compared with 6.9 cm x 2.2 cm. No new fluid collection is identified. The bowel loops are normal caliber. IMPRESSION: Status post hysterectomy. Previously noted pelvic fluid collection has decreased in size when compared with examination from two days earlier. No new abnormality is detected. Dictated by: Dictated on workstation # [id number]
--- NOTE | 2018-08-13 10:44 | Physician Progress Note ---
Progress Note Assessment/Plan Date Seen by Provider: Aug 13, 2018 Time Seen by Provider: 10:30 Events since last exam Reports improvement in pain. Has some complaint of a lump under one of her incisions. Only pain currently is a headache. continues to take IV Toradol and po Dilaudid and Tylenol. She wants to go home. Tolerating diet. Repeat CT show decrease in size of the fluid collection though it is still present. in addition, she has been afebrile over 24 hours. Will plan to DC home today with po pain meds and po antibiotics. Follow up in 1 -2 weeks. In general she has a better demeanor. She does not appear ill. She is takling and laughing in the wheelchair from radiology. Lungs are clear Heart RRR Abdomen - soft, decreased distension There is s nodule under the incision in the RUQ that is consistent with the suture. Will plan dc home as above Assessment/Plan see above Vitals Last set of Vitals Signs Vital Signs Date Time Temp Pulse Resp B/P (MAP) Pulse Ox O2 Delivery O2 Flow Rate FiO2 08/13/18 06:00 97.8 69 14 104/72 (83) 96 08/13/18 02:23 Room Air I&O I&O Intake and Output 08/13/18 00:00 Intake Total 2625 ml Output Total 1475 ml Balance 1150 ml Intake Oral 425 ml IV Total 2200 ml Output Urine Total 1475 ml # Voids 3 Labs Laboratory Tests Test 08/12/18 07:27 Range/Units White Blood Count 12.3 H 4.3-11.0 10^3/uL Red Blood Count 3.71 L 4.35-5.85 10^6/uL Hemoglobin 10.9 L 11.5-16.0 G/DL Hematocrit 32 L 35-52 % Mean Corpuscular Volume 87 80-99 FL Mean Corpuscular Hemoglobin 29 25-34 PG Mean Corpuscular Hemoglobin Concent 34 32-36 G/DL Red Cell Distribution Width 12.9 10.0-14.5 % Platelet Count 432 H 130-400 10^3/uL Mean Platelet Volume 9.2 7.4-10.4 FL Neutrophils (%) (Auto) 77 H 42-75 % Lymphocytes (%) (Auto) 14 12-44 % Monocytes (%) (Auto) 7 0-12 % Eosinophils (%) (Auto) 2 0-10 % Basophils (%) (Auto) 0 0-10 % Neutrophils # (Auto) 9.4 H 1.8-7.8 X 10^3 Lymphocytes # (Auto) 1.7 1.0-4.0 X 10^3 Monocytes # (Auto) 0.8 0.0-1.0 X 10^3 Eosinophils # (Auto) 0.3 0.0-0.3 10^3/uL Basophils # (Auto) 0.0 0.0-0.1 10^3/uL Sodium Level 140 135-145 MMOL/L Potassium Level 3.9 3.6-5.0 MMOL/L Chloride Level 106 98-107 MMOL/L Carbon Dioxide Level 22 21-32 MMOL/L Anion Gap 12 5-14 MMOL/L Blood Urea Nitrogen 7 7-18 MG/DL Creatinine 0.76 0.60-1.30 MG/DL Estimat Glomerular Filtration Rate > 60 BUN/Creatinine Ratio 9 Glucose Level 106 H 70-105 MG/DL Calcium Level 8.9 8.5-10.1 MG/DL Corrected Calcium 9.3 8.5-10.1 MG/DL Total Bilirubin 0.6 0.1-1.0 MG/DL Aspartate Amino Transf (AST/SGOT) 21 5-34 U/L Alanine Aminotransferase (ALT/SGPT) 30 0-55 U/L Alkaline Phosphatase 177 H 40-136 U/L Total Protein 6.6 6.4-8.2 GM/DL Albumin 3.5 3.2-4.5 GM/DL Radiology Draft - NAME: SUGEY ERVIN [facility] REC#: [id number] PT STATUS: ADM Kristian : 1980 PHYSICIAN: LUDA ZHENG DO ADMIT DATE: 08/11/18/ Draft Date of Exam:08/13/18 CT PELVIS WO PROCEDURE: CT pelvis without contrast. TECHNIQUE: Multiple contiguous axial images were obtained through the pelvis without the use of intravenous contrast. Sagittal and coronal reformations were performed. INDICATION: Patient status post hysterectomy with continued pelvic pain and pelvic hematoma. Study is performed for followup. Correlation is made with recent CT study performed on 08/11/2018. Visualized urinary bladder is unremarkable. The uterus is surgically absent. There is a small amount of residual fluid in the midline of the pelvis adjacent to the vaginal cuff and extending towards the left. However, this appears to be improved, now measuring approximately 6 cm x 1.7 as compared with 6.9 cm x 2.2 cm. No new fluid collection is identified. The bowel loops are normal caliber. IMPRESSION: Status post hysterectomy. Previously noted pelvic fluid collection has decreased in size when compared with examination from two days earlier. No new abnormality is detected. Dictated on workstation # [id number] Dict: 08/13/18 0839 Trans: 08/13/18 0853 [facility] [id number] Interpreted by: VENTURA SOTELO MD Electronically signed by: Focused Exam Time of Focused Exam: 10:45 Respiratory: Lungs Clear, Normal Breath Sounds Cardiovascular: Regular Rate, Rhythm, No Edema, No Murmur Diagnosis/Problems Diagnosis/Problems (1) Postoperative lower abdominal pain Status: Acute Assessment & Plan: IV pain medications and antiemetics Clear liquid diet CT done (2) Abdominal fluid collection Status: Acute Assessment & Plan: Concern for infection- IV antibiotics (broad spectrum Zosyn and Flagyl) Monitor for improvement. Consider drainage if no improvement, but it is small and likely loculated (3) Hematoma, postoperative Status: Acute Assessment & Plan: as above LUDA ZHENG DO Aug 13, 2018 10:44
[2018-08-13] MEDS ORDERED: AMOX-358 PO ×2 (10:55)
[2018-08-13] MEDS ORDERED: METR500T PO ×2 (10:55)
--- NOTE | 2018-08-13 11:14 | Discharge Summary ---
Diagnosis/Chief Complaint Date of Admission Aug 11, 2018 at 16:22 Date of Discharge 08/13/2018 Discharge Date: Aug 13, 2018 Discharge Summary-OBS Procedures CT scan Discharge Physical Examination Allergies: Coded Allergies: Sulfa (Sulfonamide Antibiotics) (Verified Allergy, Mild, RASH, GI UPSET, 07/25/18) Vitals & I&Os Vital Signs Date Time Temp Pulse Resp B/P (MAP) Pulse Ox O2 Delivery O2 Flow Rate FiO2 08/13/18 06:00 97.8 69 14 104/72 (83) 96 08/13/18 02:23 Room Air Respiratory: Clear to Auscultation, Normal Air Movement Cardiovascular: Regular Rate, Normal S1, Normal S2 Abdominal: Normal Bowel Sounds, Soft, No Tenderness, Other (RUQ tender to palp but no hernia noted. Incisions are all intact) Extremities: No Edema Skin: No Rashes Psych/Mental Status: Mental Status NL Hospital Course Labs Laboratory Tests Test 08/12/18 07:27 Range/Units White Blood Count 12.3 H 4.3-11.0 10^3/uL Red Blood Count 3.71 L 4.35-5.85 10^6/uL Hemoglobin 10.9 L 11.5-16.0 G/DL Hematocrit 32 L 35-52 % Mean Corpuscular Volume 87 80-99 FL Mean Corpuscular Hemoglobin 29 25-34 PG Mean Corpuscular Hemoglobin Concent 34 32-36 G/DL Red Cell Distribution Width 12.9 10.0-14.5 % Platelet Count 432 H 130-400 10^3/uL Mean Platelet Volume 9.2 7.4-10.4 FL Neutrophils (%) (Auto) 77 H 42-75 % Lymphocytes (%) (Auto) 14 12-44 % Monocytes (%) (Auto) 7 0-12 % Eosinophils (%) (Auto) 2 0-10 % Basophils (%) (Auto) 0 0-10 % Neutrophils # (Auto) 9.4 H 1.8-7.8 X 10^3 Lymphocytes # (Auto) 1.7 1.0-4.0 X 10^3 Monocytes # (Auto) 0.8 0.0-1.0 X 10^3 Eosinophils # (Auto) 0.3 0.0-0.3 10^3/uL Basophils # (Auto) 0.0 0.0-0.1 10^3/uL Sodium Level 140 135-145 MMOL/L Potassium Level 3.9 3.6-5.0 MMOL/L Chloride Level 106 98-107 MMOL/L Carbon Dioxide Level 22 21-32 MMOL/L Anion Gap 12 5-14 MMOL/L Blood Urea Nitrogen 7 7-18 MG/DL Creatinine 0.76 0.60-1.30 MG/DL Estimat Glomerular Filtration Rate > 60 BUN/Creatinine Ratio 9 Glucose Level 106 H 70-105 MG/DL Calcium Level 8.9 8.5-10.1 MG/DL Corrected Calcium 9.3 8.5-10.1 MG/DL Total Bilirubin 0.6 0.1-1.0 MG/DL Aspartate Amino Transf (AST/SGOT) 21 5-34 U/L Alanine Aminotransferase (ALT/SGPT) 30 0-55 U/L Alkaline Phosphatase 177 H 40-136 U/L Total Protein 6.6 6.4-8.2 GM/DL Albumin 3.5 3.2-4.5 GM/DL NAME:SUGEY ERVIN [facility] REC#:[id number] PT STATUS:ADM Kristian :1980 PHYSICIAN: LUDA ZHENG DO ADMIT DATE:08/11/18/WS Signed Date of Exam:08/11/18 CT ABDOMEN/PELVIS W WO PROCEDURE: CT abdomen and pelvis with and without contrast. TECHNIQUE: Precontrast acquisitions were acquired through the abdomen and pelvis. Multiple contiguous axial images were obtained through the abdomen and pelvis after the administration of intravenous contrast. INDICATION: Mid/lower abdominal pain status post recent hysterectomy. COMPARISON: None. FINDINGS: Included portions of the lung bases are clear. CT ABDOMEN: Normal appendix cannot be definitively identified, but there is no indirect or secondary evidence of acute appendicitis. Small bowel loops are nondistended. Liver is diffusely hypodense. No focal hepatic mass-type lesions are seen. Otherwise, the liver, kidneys, adrenal glands, spleen, and pancreas have a normal CT appearance. There is no loculated fluid collection, free fluid, nor free air within the abdomen. There is a single slightly prominent appearing, yet subcentimeter retroperitoneal lymph node anterior to the left psoas muscle just above the aortic bifurcation that measures 8 mm in shortest axis dimension (image 43, series 3). Otherwise, no abnormal mesenteric or retroperitoneal adenopathy is seen. Evaluation of the anterior subcutaneous soft tissues demonstrates area of stranding of the subcutaneous fat in the right upper abdominal quadrant. There is a small amount of gas at the umbilicus as well. Findings may relate to recent hysterectomy. No focal loculated fluid collections are identified within the subcutaneous soft tissues. CT PELVIS: There is, however, a focal loculated fluid collection within the lower pelvis just superior to the vaginal cuff interposed between the urinary bladder and rectum. It measures 2.2 x 6.9 cm (image 76, series 3). There is a moderate amount of stranding of the surrounding fat. Note is made of hyperdense material within the vaginal cuff. Please note, however, that this was present on the noncontrast exam and therefore cannot be assumed to represent cystic vaginal fistula. There may be trace amount of free fluid within the pelvis as well. There is no free air. A few scattered prominent bilateral iliac chain lymph nodes are noted. Bony structures show no acute abnormalities. IMPRESSION: 1. Focal fluid collection in the pelvis as described above. Given history of recent surgery, this does raise concern for potential abscess. Other postsurgical fluid collection such as seroma, hematoma, or lymphocele is also considered. 2. A few borderline prominent retroperitoneal and bilateral iliac chain lymph nodes; possibly reactive. 3. Hepatic steatosis. Dictated by: Dictated on workstation # [id number] Dict:08/11/181806 Trans: 08/12/18 1632 Interpreted by:LOAN PULLIAM MD Electronically signed by:LOAN PULLIAM MD 08/12/18 1632 [place] NAME:SUGEY ERVIN [facility] REC#:[id number] PT STATUS:ADM Kristian :1980 PHYSICIAN:LUDA ZHENG DO ADMIT DATE:08/11/18/WS Draft Date of Exam:08/13/18 CT PELVIS WO PROCEDURE: CT pelvis without contrast. TECHNIQUE: Multiple contiguous axial images were obtained through the pelvis without the use of intravenous contrast. Sagittal and coronal reformations were performed. INDICATION: Patient status post hysterectomy with continued pelvic pain and pelvic hematoma. Study is performed for followup. Correlation is made with recent CT study performed on 08/11/2018. Visualized urinary bladder is unremarkable. The uterus is surgically absent. There is a small amount of residual fluid in the midline of the pelvis adjacent to the vaginal cuff and extending towards the left. However, this appears to be improved, now measuring approximately 6 cm x 1.7 as compared with 6.9 cm x 2.2 cm. No new fluid collection is identified. The bowel loops are normal caliber. IMPRESSION: Status post hysterectomy. Previously noted pelvic fluid collection has decreased in size when compared with examination from two days earlier. No new abnormality is detected. Dictated on workstation # [id number] Dict:08/13/18 0839 Trans:08/13/18 0853 [facility] [id number] Interpreted by: VENTURA SOETLO MD Electronically signed by: Discharge Instructions to patient/family Please see electronic discharge instructions given to patient. Discharge Medications Reviewed and agree with Discharge Medication list on patient's Discharge Instruction sheet LUDA ZHENG DO Aug 13, 2018 11:14
[2018-08-13] MEDS: ACETAMINOPHEN 500 MG TAB (TYLENOL) PO PRN (11:49)
[2018-08-13 13:00] VITALS: BP 130/68
[2018-08-13] MEDS ORDERED: IBUPROFEN 600 MG (MOTRIN) TAB PO ONE (14:11)
[2018-08-13] MEDS ORDERED: IBUPROFEN 600 MG (MOTRIN) TAB PO SCH (14:50)
== END 2018-08-13 10:52 | disposition home or self-care (01) ==
LOC: WS 16:10 → UNDOADMOB 16:22 → WS 16:22 → UNDODISOB 08-13 14:29
PROVIDERS: ADMIT Obstetrics & Gynecology; ATTEND Obstetrics & Gynecology
DX: N99.840 Postprocedural hematoma of a genitourinary system organ or structure following a genitourinary system procedure (principal)
CPT/HCPCS: 36415; 72192; 74178; 80053; 85025; 94664; 96361; 96374; 96375; 96376; 99211; G0378

== ENCOUNTER → 2018-08-11 | Outpatient (CLI) | payer BC ==
[~2018-08-11] MED LIST changes: +ACET-77 PO; +AMOX-358 PO; +DOCU100C37 PO; +HYDR-34 PO; +HYDR2TAB6 PO; +IBUP-844 PO; +METR500T PO; +OXYC1TAB87 PO; +PHEN-826 PO; +PROM25TA14 PO; +SIME80TA16 PO; +TOLTA4 PO
[2018-08-11 16:14] LABS: BILIRUBIN,URINE NEGATIVE (NEGATIVE); CLARITY,URINE SLIGHTLY CLOUDY; COLOR,URINE YELLOW; GLUCOSE, URINE (UA) NEGATIVE (NEGATIVE); KETONES,URINE NEGATIVE (NEGATIVE); LEUKOCYTE ESTERASE ,URINE NEGATIVE (NEGATIVE); NITRITE,URINE NEGATIVE (NEGATIVE); PH,URINE 7 (5-9); PROTEIN,URINE NEGATIVE (NEGATIVE); UROBILINOGEN,URINE NORMAL (NORMAL)
[2018-08-11 16:15] LABS: HEMOGLOBIN 12.1 G/DL (11.5-16.0); MEAN PLATELET VOLUME 9.6 FL (7.4-10.4); RED BLOOD COUNT 4.2 10^6/uL (4.35-5.85); RED CELL DISTRIBUTION WIDTH 12.7 % (10.0-14.5); WHITE BLOOD COUNT 13.1 10^3/uL (4.3-11.0)
[2018-08-11 16:32] LABS: BACTERIA,URINE NEGATIVE /HPF; SQUAMOUS EPITHELIAL CELL,UR RARE /HPF
[2018-08-11 16:37] LABS: ALANINE AMINOTRANSFERASE 39 U/L (0-55); ALBUMIN 4.2 GM/DL (3.2-4.5); ALKALINE PHOSPHATASE 221 U/L (40-136); BILIRUBIN,TOTAL 0.5 MG/DL (0.1-1.0); BUN/CREATININE RATIO 8; CALCIUM 9.4 MG/DL (8.5-10.1); CARBON DIOXIDE 23 MMOL/L (21-32); CHLORIDE 103 MMOL/L (98-107); CREATININE SERUM 0.73 MG/DL (0.60-1.30); GFR ESTIMATED > 60; GLUCOSE 97 MG/DL (70-105); POTASSIUM 4.2 MMOL/L (3.6-5.0); SODIUM 140 MMOL/L (135-145)
== END ==
LOC: LABNPT 16:04
PROVIDERS: ATTEND Obstetrics & Gynecology
DX: R30.0 Dysuria (principal); R10.9 Unspecified abdominal pain
CPT/HCPCS: 80053; 81000; 85027; 87088

== ENCOUNTER 2018-08-30 12:12 | Emergency (ER) | payer BC ==
[~2018-08-30] VITALS: Ht 167.6 cm; Wt 77.1 kg
[~2018-08-30 12:12] MED LIST changes: +ACET-77 PO; +AMOX-358 PO; +HYDR2TAB6 PO; +METR500T PO; +PHEN-826 PO; +TOLTA4 PO
--- OUTSIDE RECORDS SUMMARY | 2018-08-30 12:21 | XMS REPORT | Continuity of Care Document ---
Author Author [facility] Organization [facility] Address Unknown Phone Unavailable Allergies Active Description Code Type Severity Reaction Onset Reported/Identified Relationship to Patient Clinical Status Yes sulfa drug 16 Drug N/A N/A Yes Sulfa (Sulfonamide Antibiotics) [id number] Drug Allergy Mild RASH, GI UPSET 07/25/2018 Medications There is no data. Problems Date Dx Coded Attending Type Code Diagnosis Diagnosed By 10/26/2017 B97.89 Viral syndrome 10/26/2017 R82.99 Other nonspecific finding on examination of urine 07/27/2018 LUDA ZHENG DO Ot E28.2 POLYCYSTIC OVARIAN SYNDROME 07/27/2018 LUDA ZHENG DO Ot N80.0 ENDOMETRIOSIS OF UTERUS 07/27/2018 LUDA ZHENG DO Ot N92.0 EXCESSIVE AND FREQUENT MENSTRUATION WITH 07/27/2018 LUDA ZHENG DO Ot N94.6 DYSMENORRHEA, UNSPECIFIED 07/27/2018 LUDA ZHENG DO Ot Z01.812 ENCOUNTER FOR PREPROCEDURAL LABORATORY E 07/27/2018 LUDA ZHENG DO Ot Z11.2 ENCOUNTER FOR SCREENING FOR OTHER BACTER 08/13/2018 LUDA ZHENG DO Ot N99.840 POSTPROC HEMATOMA OF A SYS ORG FOL A 08/16/2018 LUDA ZHENG DO Ot R10.9 UNSPECIFIED ABDOMINAL PAIN 08/16/2018 LUDA ZHENG DO Ot R30.0 DYSURIA Procedures There is no data. Results Test [...] ABO+Rh group BP NRG Transfusion band number [id number] NRG Blood group antibody screen NEGATIVE NRG [...] g/dL 3.2-4.5 CALCIUM CORRECTED 8.7 mg/dL 8.5-10.1 Complete urinalysis with reflex to culture - 08/11/18 15:30 Urine color determination YELLOW NRG Urine clarity determination SLIGHTLY CLOUDY NRG Urine pH measurement by test strip 7 5-9 Specific gravity of urine by test strip 1.005 1.016- 1.022 Urine protein assay by test [...] urine sediment by light microscopy NEGATIVE NRG Squamous epithelial cells detection in urine sediment by light microscopy RARE NRG Crystals detection in urine sediment by light microscopy NONE NRG Casts detection in urine sediment by light microscopy NONE NRG Mucus detection in urine sediment by light microscopy NEGATIVE NRG Complete urinalysis with reflex to culture NO NRG Bacterial urine culture - 08/11/18 15:30 Bacterial urine culture NG NRG Automated blood complete blood count (hemogram) panel - 08/11/18 16:06 Blood leukocytes automated count (number/volume) 13.1 10*3/uL 4.3-11.0 Blood erythrocytes automated count (number/volume) 4.20 10*6/uL 4.35-5.85 Venous blood hemoglobin measurement (mass/volume) 12.1 g/dL 11.5-16.0 Blood hematocrit (volume fraction) 37 % 35-52 Automated erythrocyte mean corpuscular volume 87 [foz_us] 80-99 Automated erythrocyte mean corpuscular hemoglobin (mass per erythrocyte) 29 pg 25-34 Automated erythrocyte mean corpuscular hemoglobin concentration measurement ( mass/volume) 33 g/dL 32-36 Automated erythrocyte distribution width ratio 12.7 % 10.0-14.5 Automated blood platelet count (count/volume) 457 10*3/uL 130-400 Automated blood platelet mean volume measurement 9.6 [foz_us] 7.4-10.4 Comprehensive metabolic panel - 08/11/18 16:06 Serum or plasma sodium measurement (moles/volume) 140 mmol/L 135-145 Serum or plasma potassium measurement (moles/volume) 4.2 mmol/L 3.6-5.0 Serum or plasma chloride measurement (moles/volume) 103 mmol/L 98-107 Carbon dioxide 23 mmol/L 21-32 Serum or plasma anion gap determination (moles/volume) 14 mmol/L 5-14 Serum or plasma urea nitrogen measurement (mass/volume) 6 mg/dL 7-18 Serum or plasma creatinine measurement (mass/volume) 0.73 mg/dL 0.60-1.30 Serum or plasma urea nitrogen/creatinine mass ratio 8 NRG Serum or plasma creatinine measurement with calculation of estimated glomerular filtration rate > NRG Serum or plasma glucose measurement (mass/volume) 97 mg/dL 70-105 Serum or plasma calcium measurement (mass/volume) 9.4 mg/dL 8.5-10.1 Serum or plasma total bilirubin measurement (mass/volume) 0.5 mg/dL 0.1-1.0 Serum or plasma alkaline phosphatase measurement (enzymatic activity/volume) 221 U/L 40-136 Serum or plasma aspartate aminotransferase measurement (enzymatic activity/ volume) 21 U/L 5-34 Serum or plasma alanine aminotransferase measurement (enzymatic activity/volume ) 39 U/L 0-55 Serum or plasma protein measurement (mass/volume) 7.0 g/dL 6.4-8.2 Serum or plasma albumin measurement (mass/volume) 4.2 g/dL 3.2-4.5 CALCIUM CORRECTED 9.2 mg/dL 8.5-10.1 Complete blood count (CBC) with automated white blood cell (WBC) differential - 08/12/18 07:27 Blood leukocytes automated count (number/volume) 12.3 10*3/uL 4.3-11.0 Blood erythrocytes automated count (number/volume) 3.71 10*6/uL 4.35-5.85 Venous blood hemoglobin measurement (mass/volume) 10.9 g/dL 11.5-16.0 Blood hematocrit (volume fraction) 32 % 35-52 Automated erythrocyte mean corpuscular volume 87 [foz_us] 80-99 Automated erythrocyte mean corpuscular hemoglobin (mass per erythrocyte) 29 pg 25-34 Automated erythrocyte mean corpuscular hemoglobin concentration measurement ( mass/volume) 34 g/dL 32-36 Automated erythrocyte distribution width ratio 12.9 % 10.0-14.5 Automated blood platelet count (count/volume) 432 10*3/uL 130-400 Automated blood platelet mean volume measurement 9.2 [foz_us] 7.4-10.4 Automated blood neutrophils/100 leukocytes 77 % 42-75 Automated blood lymphocytes/100 leukocytes 14 % 12-44 Blood monocytes/100 leukocytes 7 % 0-12 Automated blood eosinophils/100 leukocytes 2 % 0-10 Automated blood basophils/100 leukocytes 0 % 0-10 Blood neutrophils automated count (number/volume) 9.4 10*3 1.8-7.8 Blood lymphocytes automated count (number/volume) 1.7 10*3 1.0-4.0 Blood monocytes automated count (number/volume) 0.8 10*3 0.0-1.0 Automated eosinophil count 0.3 10*3/uL 0.0-0.3 Automated blood basophil count (count/volume) 0.0 10*3/uL 0.0-0.1 Comprehensive metabolic panel - 08/12/18 07:27 Serum or plasma sodium measurement (moles/volume) 140 mmol/L 135-145 Serum or plasma potassium measurement (moles/volume) 3.9 mmol/L 3.6-5.0 Serum or plasma chloride measurement (moles/volume) 106 mmol/L 98-107 Carbon dioxide 22 mmol/L 21-32 Serum or plasma anion gap determination (moles/volume) 12 mmol/L 5-14 Serum or plasma urea nitrogen measurement (mass/volume) 7 mg/dL 7-18 Serum or plasma creatinine measurement (mass/volume) 0.76 mg/dL 0.60-1.30 Serum or plasma urea nitrogen/creatinine mass ratio 9 NRG Serum or plasma creatinine measurement with calculation of estimated glomerular filtration rate > NRG Serum or plasma glucose measurement (mass/volume) 106 mg/dL 70-105 Serum or plasma calcium measurement (mass/volume) 8.9 mg/dL 8.5-10.1 Serum or plasma total bilirubin measurement (mass/volume) 0.6 mg/dL 0.1-1.0 Serum or plasma alkaline phosphatase measurement (enzymatic activity/volume) 177 U/L 40-136 Serum or plasma aspartate aminotransferase measurement (enzymatic activity/ volume) 21 U/L 5-34 Serum or plasma alanine aminotransferase measurement (enzymatic activity/volume ) 30 U/L 0-55 Serum or plasma protein measurement (mass/volume) 6.6 g/dL 6.4-8.2 Serum or plasma albumin measurement (mass/volume) 3.5 g/dL 3.2-4.5 CALCIUM CORRECTED 9.3 mg/dL 8.5-10.1 Encounters ACCT No. Visit Date/Time Discharge Status Pt. Type Provider Facility Loc./Unit Complaint [id number] 05/30/2018 09:27:00 ACT Unknown [id number] 06/17/2018 12:44:30 06/17/2018 23:59:59 DIS Outpatient JENNIFER RAMIREZ [facility] REX RAD flank pain, hematuria [id number] 09/06/2017 04:11:00 09/06/2017 07:20:00 DIS Emergency BETH RAMOS [facility] REX ED ED visit [id number] 06/24/2018 10:00:35 06/24/2018 23:59:59 CLS Outpatient Jennifer Ramirez [id number] 06/20/2018 16:26:44 06/20/2018 23:59:59 CLS Outpatient Jennifer Ramirez [id number] 05/30/2018 14:59:05 05/30/2018 23:59:59 CLS Outpatient Julienne Basurto [id number] 05/26/2018 09:03:17 05/26/2018 23:59:59 CLS Outpatient Luis Iglesias [id number] 05/23/2018 16:01:46 05/23/2018 23:59:59 CLS Outpatient Jennifer Ramirez [id number] 03/08/2018 12:24:45 03/08/2018 23:59:59 CLS Outpatient Luis Iglesias [id number] 01/23/2018 14:44:09 01/23/2018 23:59:59 CLS Outpatient Camilo Bocanegra [id number] 10/17/2016 13:57:02 10/17/2016 23:59:59 CLS Outpatient Jeffy Lizama [id number] 05/30/2018 14:05:00 Document Registration [id number] 06/01/2018 06:06:00 Document Registration [id number] 11/15/2017 15:20:00 11/15/2017 23:59:59 CLS Outpatient RICKEY LAGOS [id number] 05/30/2018 14:05:00 Document Registration [id number] 05/30/2018 14:05:00 Document Registration [id number] 08/11/2018 16:22:00 08/13/2018 14:29:00 DIS Outpatient LUDA ZHENG DO [facility] POST OP PAIN [id number] 08/11/2018 16:04:00 08/11/2018 23:59:59 CLS Outpatient LUDA ZHENG DO [facility] LABNPT [id number] 08/02/2018 07:50:00 08/04/2018 10:15:00 DIS Outpatient LUDA ZHENG DO [facility] SDC MENORRHAGIA [id number] 07/25/2018 12:56:00 07/25/2018 14:33:00 DIS Outpatient LUDA ZHENG DO [facility] PREOP MENORRHAGIA [id number] 05/30/2018 14:05:00 Document Registration [id number] 06/02/2018 12:08:00 Document Registration [id number] 06/25/2018 14:05:00 Document Registration
[2018-08-30] MEDS ORDERED: ASPIRIN 81 MG CHEW (CHILDREN'S ASA) PO ONE (12:30)
[2018-08-30] MEDS ORDERED: fentaNYL INJECTION 100 MCG/2 ML AMP IVP ONE (12:30)
--- NOTE | 2018-08-30 12:31 | ED General ---
General Stated Complaint: CHEST PAIN Source of Information: Patient Exam Limitations: No Limitations History of Present Illness Date Seen by Provider: Aug 30, 2018 Time Seen by Provider: 12:29 Initial Comments To ER with reports of chest pain with deep breathing and shortness of breath upon awakening this morning. She also has some severe suprapubic abdominal pain. She had a hysterectomy done on 08/02/18. States that she has a known hematoma in the low pelvis which is causing her pain and irritating her bladder. This morning, she awakened with shortness of breath and pain with deep breathing. No hemoptysis. 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 She is not currently on any anticoagulants. She denies any swelling of either of her legs. Timing/Duration: 4-6 Hours Severity: Moderate Associated Systoms: Chest Pain; No Cough, No Diaphoresis, No Fever/Chills, No Headaches, No Loss of Appetite, No Malaise, No Nausea/Vomiting, No Rash; Shortness of Air Allergies and Home Medications Allergies Coded Allergies: Sulfa (Sulfonamide Antibiotics) (Verified Allergy, Mild, RASH, GI UPSET, 07/25/18) Home Medications Acetaminophen 500 Mg Tablet, 1,000 MG PO Q8H PRN for PAIN-MILD OR TEMP > 101 Prescribed by: LUDA ZHENG on 08/12/181706 Amoxicillin/Potassium Clav 1 Each Tablet, 1 EACH PO BID Prescribed by: LUDA ZHENG on 08/13/18 105 Docusate Sodium 100 Mg Capsule, 100 MG PO BID PRN for CONSTIPATION-1ST LINE Prescribed by: LUDA ZHENG on 08/03/18918 Fish Oil/Dha/Epa 1 Each Capsule, 1 EACH PO DAILY, (Reported) Hydromorphone HCl 2 Mg Tablet, 2 MG PO Q4H PRN for PAIN-SEVERE Prescribed by: LUDA ZHENG on 08/12/181706 Ibuprofen 600 Mg Tablet, 600 MG PO Q6H PRN for PAIN-MILD Prescribed by: LUDA ZHENG on 08/03/18 09 Metronidazole 500 Mg Tablet, 500 MG PO TID Prescribed by: LUDA ZHENG on 08/13/18 105 Phenazopyridine HCl 100 Mg Tablet, 200 MG PO TIDPC Prescribed by: LUDA ZHENG on 08/12/181706 Promethazine HCl 25 Mg Tablet, 25 MG PO Q6H PRN for NAUSEA/VOMITING Prescribed by: LUDA ZHENG on 08/04/18 0828 Simethicone 80 Mg Tab.chew, 40 MG PO TID PRN for INDIGESTION Prescribed by: LUDA ZHENG on 08/03/18 0919 Tolterodine Tartrate 4 Mg Cap, 4 MG PO HS Prescribed by: LUDA ZHENG on 08/12/18 170 Zolpidem Tartrate 10 Mg Tablet, 10 MG PO DAILY, (Reported) Patient Home Medication List Home Medication List Reviewed: Yes Review of Systems Review of Systems Constitutional: see HPI EENTM: see HPI Respiratory: see HPI; No cough; dyspnea on exertion; No hemoptysis; short of breath Cardiovascular: see HPI, chest pain Genitourinary: no symptoms reported Musculoskeletal: no symptoms reported Skin: no symptoms reported Past Fxdnvgd-Vpyduc-Kgwtwz Hx Patient Social History Recent Hopitalizations: No Immunizations Up To Date Tetanus Booster (TDap): Unknown PED Vaccines UTD: No Seasonal Allergies Seasonal Allergies: Yes Past Medical History Section Asthma Headaches /Migraines Reproductive Disorders: Yes (MENORHAGIA, DYSMENORRHEA) Female Reproductive Disorders: Menstrual Problems, Polycystic Ovarian Dis Sexually Transmitted Disease: No HIV/AIDS: No Loss of Vision: Denies Hearing Impairment: Denies Anxiety Eczema Adverse Reaction/Blood Tranf: No Physical Exam Vital Signs Vital Signs - First Documented 08/30/18 12:14 Pulse 82 Resp 18 B/P (MAP) 114/74 (87) Pulse Ox 98 O2 Delivery Room Air Capillary Refill : Height, Weight, BMI Height: 5'6.00" Weight: 183lbs. 0.0oz. 83.543130id; 29.5 BMI Method: General Appearance: No Apparent Distress, WD/WN, Other (oxygen saturation 98% on room air, heart rate 88, blood pressure 114/86.) Eyes: Bilateral Eye Normal Inspection, Bilateral Eye PERRL HEENT: PERRL/EOMI, TMs Normal Neck: Full Range of Motion, Normal Inspection Respiratory: Normal Breath Sounds, No Accessory Muscle Use, No Respiratory Distress Cardiovascular: Regular Rate, Rhythm, Normal Peripheral Pulses Gastrointestinal: Normal Bowel Sounds, Non Tender, Soft Extremity: Normal Capillary Refill, Normal Inspection Neurologic/Psychiatric: Alert, Oriented x3, No Motor/Sensory Deficits Skin: Normal Color, Warm/Dry Progress/Results/Core Measures Suspected Sepsis SIRS Temperature: Pulse: Respiratory Rate: Laboratory Tests 08/30/18 12:30: White Blood Count 7.9 Blood Pressure / Mean: Laboratory Tests 08/30/18 12:30: Creatinine 0.86, INR Comment 1.0, Platelet Count 418H, Total Bilirubin 0.7 Results/Orders Lab Results Laboratory Tests Test 08/30/18 12:30 Range/Units White Blood Count 7.9 4.3-11.0 10^3/uL Red Blood Count 4.20 L 4.35-5.85 10^6/uL Hemoglobin 12.5 11.5-16.0 G/DL Hematocrit 37 35-52 % Mean Corpuscular Volume 88 80-99 FL Mean Corpuscular Hemoglobin 30 25-34 PG Mean Corpuscular Hemoglobin Concent 34 32-36 G/DL Red Cell Distribution Width 14.0 10.0-14.5 % Platelet Count 418 H 130-400 10^3/uL Mean Platelet Volume 9.1 7.4-10.4 FL Neutrophils (%) (Auto) 53 42-75 % Lymphocytes (%) (Auto) 36 12-44 % Monocytes (%) (Auto) 6 0-12 % Eosinophils (%) (Auto) 6 0-10 % Basophils (%) (Auto) 1 0-10 % Neutrophils # (Auto) 4.1 1.8-7.8 X 10^3 Lymphocytes # (Auto) 2.8 1.0-4.0 X 10^3 Monocytes # (Auto) 0.4 0.0-1.0 X 10^3 Eosinophils # (Auto) 0.5 H 0.0-0.3 10^3/uL Basophils # (Auto) 0.0 0.0-0.1 10^3/uL Prothrombin Time 13.4 12.2-14.7 SEC INR Comment 1.0 0.8-1.4 Activated Partial Thromboplast Time 27 24-35 SEC D-Dimer 2.86 H 0.00-0.49 UG/ML Sodium Level 138 135-145 MMOL/L Potassium Level 3.7 3.6-5.0 MMOL/L Chloride Level 104 98-107 MMOL/L Carbon Dioxide Level 24 21-32 MMOL/L Anion Gap 10 5-14 MMOL/L Blood Urea Nitrogen 9 7-18 MG/DL Creatinine 0.86 0.60-1.30 MG/DL Estimat Glomerular Filtration Rate > 60 BUN/Creatinine Ratio 10 Glucose Level 128 H 70-105 MG/DL Calcium Level 9.3 8.5-10.1 MG/DL Corrected Calcium 8.5-10.1 MG/DL Magnesium Level 1.9 1.8-2.4 MG/DL Total Bilirubin 0.7 0.1-1.0 MG/DL Aspartate Amino Transf (AST/SGOT) 27 5-34 U/L Alanine Aminotransferase (ALT/SGPT) 52 0-55 U/L Alkaline Phosphatase 93 40-136 U/L Myoglobin 23.4 10.0-92.0 NG/ML Troponin I < 0.30 <0.30 NG/ML B-Type Natriuretic Peptide < 10.0 <100.0 PG/ML Total Protein 7.5 6.4-8.2 GM/DL Albumin 4.6 H 3.2-4.5 GM/DL Lipase 17 8-78 U/L My Orders Orders - TONY SOTO PHYSICIAN OPHTHALMOLOGIST Cbc With Automated Diff (08/30/18 12:20) Magnesium (08/30/18 12:20) Chest 1 View, Ap/Pa Only (08/30/18 12:20) Ekg Tracing (08/30/18 12:20) Cardiac Profile 1 (08/30/18 12:20) Comprehensive Metabolic Panel (08/30/18 12:20) Myoglobin Serum (08/30/18 12:20) Protime With Inr (08/30/18 12:20) Partial Thromboplastin Time (08/30/18 12:20) O2 (08/30/18 12:20) Monitor-Rhythm Ecg Trace Only (08/30/18 12:20) Aspirin Chewable Tablet (Baby Aspirin Ch (08/30/18 12:30) Saline Lock/Iv-Start (08/30/18 12:20) Lipase (08/30/18 12:20) BNP (08/30/18 12:20) Fibrin Degradation Products (08/30/18 12:20) Ct Angio Chst/Abd/Pelv W (08/30/18 12:27) Fentanyl Injection (Sublimaze Injection (08/30/18 12:30) Iohexol Injection (Omnipaque 350 Mg/Ml 1 (08/30/18 13:00) Contrast Received (Contrast Received) (08/30/18 13:00) Ns (Ivpb) (Sodium Chloride 0.9% Ivpb Bag (08/30/18 13:00) Medications Given in ED Current Medications Medications Dose Ordered Sig/Yonatan Route Start Time Stop Time Status Last Admin Dose Admin Aspirin 324 mg ONCE ONCE PO 08/30/18 12:30 08/30/18 12:31 DC 08/30/18 12:45 324 MG Fentanyl Citrate 50 mcg ONCE ONCE IVP 08/30/18 12:30 08/30/18 12:31 DC 08/30/18 12:45 50 MCG Iohexol 125 ml ONCE ONCE IV 08/30/18 13:00 08/30/18 13:01 DC 08/30/18 13:18 125 ML Sodium Chloride 100 ml ONCE ONCE IV 08/30/18 13:00 08/30/18 13:01 DC 08/30/18 13:18 80 ML Vital Signs/I&O 08/30/18 08/30/18 12:14 14:49 Pulse 82 79 Resp 18 17 B/P (MAP) 114/74 (87) 115/55 (75) Pulse Ox 98 95 O2 Delivery Room Air Room Air Capillary Refill : Departure Communication (Admissions) Spoke with Dr. Zheng at 1419. She agrees with plan of care and advises no change in current treatment regimen. She will follow up with the patient in her clinic as scheduled. Patient denies any fevers or chills, she has no white count or left shift, she is not tachycardic or febrile here. These do NOT support the possibility of intra-abdominal abscess as mentioned on CT. NAME: SUGEY ERVIN [facility] REC#: [id number] PT STATUS: REG ER : 1980 PHYSICIAN: TONY SOTO APRN ADMIT DATE: 08/30/18/ER Draft Date of Exam:08/30/18 CT ANGIO CHST/ABD/PELV W PROCEDURE: 1. CT chest angiography with intravenous contrast. 2. CT abdomen and pelvis with intravenous contrast. TECHNIQUE: 1. Axial CT images of the chest following the intravenous administration of contrast were obtained. Oblique and three-dimensional MIP reformats were obtained and provided. 2. Axial postcontrast CT images of the abdomen and pelvis were obtained. Coronal and sagittal reformats were obtained and provided. DATE: August 30, 2018. INDICATION: 38-year-old female, shortness of breath. Pain with deep breathing. Lower abdominal pain as well. COMPARISON: CT abdomen and pelvis without and with intravenous contrast August 11, 2018. FINDINGS: There is very minimal dependent atelectasis in the lower lobes. There is no additional focal airspace consolidation. There is no pulmonary nodule or lung mass. The central airways are patent. There is no pneumothorax. There is no pleural effusion. The main pulmonary artery is normal in caliber. There is no identified pulmonary embolus. The heart is normal in size. There is no pericardial effusion. There is no evidence of acute aortic injury or aortic dissection. There is no abnormally enlarged mediastinal, hilar, or axillary lymph node which meets CT size criteria for adenopathy. The liver is normal in size and contour. There is no identified liver lesion. The main, right, and left portal veins are patent. The gallbladder is unremarkable. There is no intrahepatic or extrahepatic bile duct dilation. The main pancreatic duct is not abnormally dilated. Unremarkable appearance of the pancreatic parenchyma. The spleen is normal in size is an accessory splenule on axial image 25. The adrenal glands are unremarkable. Unremarkable appearance of the renal parenchyma. Urinary collecting systems are not distended. There is no identified renal or ureteral stone. The urinary bladder is unremarkable in appearance. There is a low-attenuation lesion in the left adnexa which measures 3.6 x 3.4 cm in size. There is an adjacent additional low-attenuation left adnexal lesion measuring up to 1.4 cm in size. Alternatively, this may relate to a bilobed single cystic lesion with thin internal septation. There is mild adjacent inflammatory stranding and potential a fluid-filled left sided fallopian tube or other irregularly-shaped fluid collection. On prior CT, there is a fluid collection in this region which previously measured 2.2 x 6.9 cm in size. Currently this measures smaller in size and has rough axial measurement of 4.1 x 0.5 cm. The uterus is not well seen and may be surgically absent. The right adnexa is grossly unremarkable in appearance on CT. There is wall thickening of the distal sigmoid colon on axial image 71 which potentially could relate to the left adnexal process. The intestinal tract is not distended. The cecum is near midline in position. The appendix is not well seen. There are no identified secondary findings to specifically suggest acute appendicitis. There is no free intraperitoneal air. There is no drainable fluid collection. There is very minimal free pelvic fluid. There is no identified abnormally enlarged lymph node within the abdomen or pelvis which meets CT size criteria for adenopathy. There is no identified acute bony abnormality. IMPRESSION: 1. No identified pulmonary embolus, evidence of aortic injury or dissection, or other acute cardiopulmonary abnormality. 2. Abnormal appearance of the left adnexa with potentially bilobed cystic left adnexal mass with thin internal septation versus subjacent cystic lesions in the left adnexa. These are more prominent since comparison exam. There is inflammatory stranding in the left adnexa with focal fluid in the left adnexal region at location of previously noted peripherally enhancing fluid collection on prior CT of August 11, 2018. Current focal fluid in this location currently measures approximately 4.1 x 0.5 cm in size and may relate to incompletely resolved abscess or other fluid collection. Dictated on workstation # [id number] Dict: 08/30/18 1339 Trans: 08/30/18 1408 [facility] [id number] Interpreted by: MITESH WATTS MD Electronically signed by: Impression Primary Impression: Dyspnea Qualified Codes: R06.00 - Dyspnea, unspecified Additional Impression: Postoperative lower abdominal pain Disposition: 01 HOME, SELF-CARE Condition: Stable Departure-Patient Inst. Decision time for Depature: 14:20 Referrals: NO,LOCAL PHYSICIAN (PCP) Primary Care Physician LUDA ZHENG DO (Family) Primary Care Physician Patient Instructions: Shortness of Breath (Dyspnea) Add. Discharge Instructions: 1. Return to ER for any concerns 2. Follow-up with Dr. Zheng. Copy Copies To 1: LUDA ZHENG PETER J APRN Aug 30, 2018 12:31
[2018-08-30 12:44] LABS: BASOPHILS % (AUTO) 1 % (0-10); EOSINOPHILS # (AUTO) 0.5 10^3/uL (0.0-0.3); EOSINOPHILS % (AUTO) 6 % (0-10); HEMATOCRIT 37 % (35-52); HEMOGLOBIN 12.5 G/DL (11.5-16.0); LYMPHOCYTES # (AUTO) 2.8 X 10^3 (1.0-4.0); LYMPHOCYTES % (AUTO) 36 % (12-44); MEAN CORPUSCULAR HEMOGLOBIN 30 PG (25-34); MEAN CORPUSCULAR HGB CONC 34 G/DL (32-36); MEAN CORPUSCULAR VOLUME 88 FL (80-99); MEAN PLATELET VOLUME 9.1 FL (7.4-10.4); MONOCYTES # (AUTO) 0.4 X 10^3 (0.0-1.0); MONOCYTES % (AUTO) 6 % (0-12); NEUTROPHILS # (AUTO) 4.1 X 10^3 (1.8-7.8); NEUTROPHILS % (AUTO) 53 % (42-75); PLATELET COUNT 418 10^3/uL (130-400); WHITE BLOOD COUNT 7.9 10^3/uL (4.3-11.0)
[2018-08-30 12:58] LABS: PROTHROMBIN TIME PATIENT 13.4 SEC (12.2-14.7)
[2018-08-30] MEDS ORDERED: NS 100 ML (IVPB) BAG IV ONE (13:00)
[2018-08-30] MEDS ORDERED: IOHEXOL 350 MG/ML 150 ML (OMNIPAQUE 350) VIAL IV ONE (13:00)
[2018-08-30] MEDS ORDERED: RECEIVED CONTRAST (Hold Metformin) IV SCH (13:00)
[2018-08-30 13:09] LABS: ALANINE AMINOTRANSFERASE 52 U/L (0-55); ALBUMIN 4.6 GM/DL (3.2-4.5); ALKALINE PHOSPHATASE 93 U/L (40-136); BILIRUBIN,TOTAL 0.7 MG/DL (0.1-1.0); BUN/CREATININE RATIO 10; CALCIUM 9.3 MG/DL (8.5-10.1); CARBON DIOXIDE 24 MMOL/L (21-32); CHLORIDE 104 MMOL/L (98-107); CREATININE SERUM 0.86 MG/DL (0.60-1.30); GFR ESTIMATED > 60; GLUCOSE 128 MG/DL (70-105); LIPASE 17 U/L (8-78); MAGNESIUM 1.9 MG/DL (1.8-2.4); POTASSIUM 3.7 MMOL/L (3.6-5.0); SODIUM 138 MMOL/L (135-145); TOTAL PROTEIN 7.5 GM/DL (6.4-8.2)
[2018-08-30 13:16] LABS: MYOGLOBIN SERUM 23.4 NG/ML (10.0-92.0)
--- NOTE | 2018-08-30 13:49 | Diagnostic Imaging Report ---
INDICATION: Shortness of air. COMPARISON: None. FINDINGS: Single frontal view of the chest demonstrates normal heart size and pulmonary vascularity. The lungs are well aerated and clear. No large pleural effusion or pneumothorax is seen. The visualized osseous structures show no acute abnormalities. IMPRESSION: 1. No acute cardiopulmonary process. Dictated by: Dictated on workstation # [id number]
--- NOTE | 2018-08-30 14:09 | Diagnostic Imaging Report ---
PROCEDURE: 1. CT chest angiography with intravenous contrast. 2. CT abdomen and pelvis with intravenous contrast. TECHNIQUE: 1. Axial CT images of the chest following the intravenous administration of contrast were obtained. Oblique and three-dimensional MIP reformats were obtained and provided. 2. Axial postcontrast CT images of the abdomen and pelvis were obtained. Coronal and sagittal reformats were obtained and provided. DATE: August 30, 2018. INDICATION: 38-year-old female, shortness of breath. Pain with deep breathing. Lower abdominal pain as well. COMPARISON: CT abdomen and pelvis without and with intravenous contrast August 11, 2018. FINDINGS: There is very minimal dependent atelectasis in the lower lobes. There is no additional focal airspace consolidation. There is no pulmonary nodule or lung mass. The central airways are patent. There is no pneumothorax. There is no pleural effusion. The main pulmonary artery is normal in caliber. There is no identified pulmonary embolus. The heart is normal in size. There is no pericardial effusion. There is no evidence of acute aortic injury or aortic dissection. There is no abnormally enlarged mediastinal, hilar, or axillary lymph node which meets CT size criteria for adenopathy. The liver is normal in size and contour. There is no identified liver lesion. The main, right, and left portal veins are patent. The gallbladder is unremarkable. There is no intrahepatic or extrahepatic bile duct dilation. The main pancreatic duct is not abnormally dilated. Unremarkable appearance of the pancreatic parenchyma. The spleen is normal in size is an accessory splenule on axial image 25. The adrenal glands are unremarkable. Unremarkable appearance of the renal parenchyma. Urinary collecting systems are not distended. There is no identified renal or ureteral stone. The urinary bladder is unremarkable in appearance. There is a low-attenuation lesion in the left adnexa which measures 3.6 x 3.4 cm in size. There is an adjacent additional low-attenuation left adnexal lesion measuring up to 1.4 cm in size. Alternatively, this may relate to a bilobed single cystic lesion with thin internal septation. There is mild adjacent inflammatory stranding and an irregularly-shaped fluid collection. On prior CT, there is a fluid collection in this region which previously measured 2.2 x 6.9 cm in size. Currently this measures smaller in size and has rough axial measurement of 4.1 x 0.5 cm. The uterus is not well seen and may be surgically absent. The right adnexa is grossly unremarkable in appearance on CT. There is wall thickening of the distal sigmoid colon on axial image 71 which potentially could relate to the left adnexal process. The intestinal tract is not distended. The cecum is near midline in position. The appendix is not well seen. There are no identified secondary findings to specifically suggest acute appendicitis. There is no free intraperitoneal air. There is no drainable fluid collection. There is very minimal free pelvic fluid. There is no identified abnormally enlarged lymph node within the abdomen or pelvis which meets CT size criteria for adenopathy. There is no identified acute bony abnormality. IMPRESSION: 1. No identified pulmonary embolus, evidence of aortic injury or dissection, or other acute cardiopulmonary abnormality. 2. Abnormal appearance of the left adnexa with potentially bilobed cystic left adnexal mass with thin internal septation versus subjacent cystic lesions in the left adnexa. These are more prominent since comparison exam. There is inflammatory stranding in the left adnexa with focal fluid in the left adnexal region at location of previously noted peripherally enhancing fluid collection on prior CT of August 11, 2018. Current focal fluid in this location currently measures approximately 4.1 x 0.5 cm in size and may relate to incompletely resolved abscess or other fluid collection. Dictated by: Dictated on workstation # [id number]
[2018-08-30 14:49] VITALS: BP 115/55
== END 2018-08-30 14:49 | disposition home or self-care (01) ==
LOC: EDUNIT# 12:12 → ER 12:13
DX: R06.00 Dyspnea, unspecified (principal); G89.18 Other acute postprocedural pain; R10.30 Lower abdominal pain, unspecified; J45.909 Unspecified asthma, uncomplicated; G43.909 Migraine, unspecified, not intractable, without status migrainosus; F41.9 Anxiety disorder, unspecified; Z88.0 Allergy status to penicillin; Z87.448 Personal history of other diseases of urinary system; Z90.710 Acquired absence of both cervix and uterus; Z86.718 Personal history of other venous thrombosis and embolism; Z98.890 Other specified postprocedural states
CPT/HCPCS: 36415; 71045; 71275; 74174; 80053; 83690; 83735; 83874; 83880; 84484; 85025; 85379; 85610; 85730; 93005; 93041